=== PATIENT | female | born 1980 | race Caucasian/White ===

== ENCOUNTER 2019-03-22 23:32 | Emergency (ER) | payer OTHER, SELFPAY ==
[2019-03-22 23:06] VITALS: BP 140/103; PULSE 134; RESP 16; TEMP 37.4; O2SAT 97
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
[2019-03-23 01:00] VITALS: BP 138/100; PULSE 123; RESP 13; TEMP 37.2; O2SAT 98
[2019-03-23 02:35] VITALS: BP 144/103; PULSE 119; RESP 15; O2SAT 98
[2019-03-23] MEDS: TRAMADOL HCL 50 MG TABLET PO (02:35)
== END 2019-03-23 02:35 | disposition home or self-care (01) ==
PROVIDERS: Emergency Provider Emergency Medicine
DX: S00.83XA Contusion of other part of head, initial encounter (principal); S20.20XA Contusion of thorax, unspecified, initial encounter; F17.210 Nicotine dependence, cigarettes, uncomplicated; Z87.440 Personal history of urinary (tract) infections; Z86.2 Personal history of diseases of the blood and blood-forming organs and certain disorders involving the immune mechanism; J45.909 Unspecified asthma, uncomplicated; Q61.5 Medullary cystic kidney; Z87.442 Personal history of urinary calculi; Z85.43 Personal history of malignant neoplasm of ovary; G47.30 Sleep apnea, unspecified; Y04.2XXA Assault by strike against or bumped into by another person, initial encounter
CPT/HCPCS: 99283; A9270

== ENCOUNTER 2019-04-23 08:04 | Emergency (ER) | payer OTHER, SELFPAY ==
[2019-04-23 08:15] VITALS: BP 120/92; PULSE 80; RESP 16; TEMP 36.9; O2SAT 99
--- NOTE | 2019-04-23 08:23 | ED.FEMALEGU ---
HPI - Female Genitourinary General Chief complaint: Urogenital-Female Stated complaint: UTI History of Present Illness HPI Narrative: This a 38-year-old female comes in complaining of urinary tract infection states that she is having burning frequency and stomach bloating and severe abdominal pain. 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 So she came to urgent care. Patient denies any fever nausea vomiting or back pain Related Data Home Medications Medication Instructions Recorded Confirmed Medical Marijuania 04/23/19 alprazolam [Xanax] 1 mg PO BID 04/23/19 04/23/19 aripiprazole [Abilify] 10 mg PO DAILY 04/23/19 04/23/19 quetiapine [Seroquel] 25 mg PO DAILY 04/23/19 04/23/19 Allergies Allergy/AdvReac Type Severity Reaction Status Date / Time Contrast Media Allergy Mild HIVES/ RED Uncoded 03/22/19 23:36 FACE Review of Systems Review of Systems: Narrative: ever, chills, or sweats. EYES: Denies visual changes, redness, or discharge. ENT: Denies rhinorrhea, congestion, sore throat, or otalgia. CARDIOVASCULAR:Denies chest pain, palpitations, or edema. RESPIRATORY: Denies cough or dyspnea. GASTROINTESTINAL: Denies abdominal pain, nausea, vomiting, or diarrhea. GENITOURINARY: Gratzer positive dysuria or hematuria. SKIN:[Denies rash or itching. MUSCULOSKELETAL:Denies back pain, joint pain, or myalgia. NEUROLOGIC: Denies headache, numbness, or weakness. PSYCHIATRIC:Denies anxiety or depression [facility] Past Medical History Medical History (Updated 04/23/19 @ 08:27 by Pavan Caal NP) Anemia Anxiety Asthma Bipolar disorder Depression Hepatitis B Kidney disease sponge kidney disease Kidney stones Ovarian cancer Polyhydramnios PTSD (post-traumatic stress disorder) Sleep apnea UTI (urinary tract infection) Surgical History Surgical History (Updated 03/23/19 @ 00:16 by Tina eReder) H/O oophorectomy lt H/O tubal ligation History of dilatation and curettage History of salpingectomy lt Hx of section Social History Social History (Updated 03/23/19 @ 00:16 by Tina Reeder) Smoking packs per day: 0.5 Smoking cigarettes per day: 10.0 Smoking status: Current every day smoker Alcohol intake: current Gender identity (if verbalized by the patient): Female Comments At time as signature, I have reviewed and agree with nursing past medical, social, surgical and family history. Please see nursing chart for further information. There is no relevant family history pertinent to the presenting complaint. Exam Narrative: Exam Narrative: GENERAL:Well-appearing, well-nourished, and in no acute distress. HEAD:Normocephalic, atraumatic. EYES: PERRLA and EOMI. ENT: Nares clear, no rhinorrhea or epistaxis. Mucous membranes moist. NECK: Supple. CHEST: Clear to auscultation. No respiratory distress. HEART: Regular rate and rhythm. No murmur heard. Normal peripheral pulses. ABDOMEN: Soft, nontender, nondistended, normal active bowel sounds. Frequency and dysuria EXTREMITIES: Normal range of motion. No edema. SKIN: Warm, dry, no rash. NEURO: No focal deficits. Alert and oriented x3. Patient states she is here every 3 to 4 weeks she has these frequency discussed with patient about seeing a urologist. Informed patient she needed to speak with her primary care provider for possible referral. Question patient about spilling sugar in her urine patient has a family history of diabetes patient is states she has excessive thirstiness she drinks 6-7 bottles of water in the middle the night. Informed patient it was vital that she gets a hold of her PCP as soon as possible and get this taken care. Course Vital Signs Vital signs: Vital Signs Temperature 98.5 F 04/23/19 08:15 Pulse Rate 80 03/
== END 2019-04-23 08:51 | disposition home or self-care (01) ==
PROVIDERS: Emergency Provider Nurse Practitioner Family
DX: N10 Acute pyelonephritis (principal); F17.210 Nicotine dependence, cigarettes, uncomplicated; F41.9 Anxiety disorder, unspecified; F31.9 Bipolar disorder, unspecified; G47.30 Sleep apnea, unspecified
CPT/HCPCS: 81003; 87077; 87086; 87088; 87186; 99213; G0463

== ENCOUNTER 2019-07-30 10:57 | Emergency (ER) | payer OTHER, SELFPAY ==
[2019-07-30 11:31] VITALS: BP 113/71; PULSE 64; RESP 16; TEMP 36.4; O2SAT 98
--- NOTE | 2019-07-30 11:53 | ED.FEMALEGU ---
HPI - Female Genitourinary General Chief complaint: Urogenital-Female Stated complaint: Possbile UTi Time Seen by Provider: 07/30/19 11:54 Source: patient and RN notes reviewed Mode of arrival: ambulatory Limitations: no limitations History of Present Illness HPI Narrative: This is a 38 years old female presented office for evaluation of possible UTI. Symptoms began a few days ago with urinary urgency, frequency, and suprapubic tenderness. Symptoms reminiscent her previous UTI. Admits to history of recurrent UTI in the past. She is sexually active with one parnter. Denies concerns for STIs. Related Data Home Medications Medication Instructions Recorded Confirmed alprazolam [Xanax] 1 mg PO TID 07/30/19 07/30/19 aripiprazole [Abilify] 10 mg PO DAILY 07/30/19 07/30/19 Allergies Allergy/AdvReac Type Severity Reaction Status Date / Time Contrast Media Allergy Mild HIVES/ RED Uncoded 07/30/19 11:39 FACE Review of Systems Review of Systems: Narrative: CONSTITUTIONAL: Denies fever or feeling ill ENT: Denies congestion CARDIOVASCULAR: Denies chest pain RESPIRATORY: Denies dyspnea GASTROINTESTINAL: Denies abdominal pain, nausea, vomiting GENITOURINARY: Denies vaginal discharge, itchy or lesions SKIN: Denies rash MUSCULOSKELETAL: Denies acute back pain NEUROLOGIC: Denies lightheaded PMFSH Past Medical History Medical History Anemia Anxiety Asthma Bipolar disorder Depression Hepatitis B Kidney disease sponge kidney disease Kidney stones Ovarian cancer Polyhydramnios PTSD (post-traumatic stress disorder) Sleep apnea UTI (urinary tract infection) Surgical History Surgical History H/O oophorectomy lt H/O tubal ligation History of dilatation and curettage History of salpingectomy lt Hx of section Social History Social History Smoking packs per day: 0.5 Smoking cigarettes per day: 10.0 Smoking status: Current every day smoker Alcohol intake: current Gender identity (if verbalized by the patient): Female Comments At time of signature, I agree with nursing past medical, surgical, social and family history. There is no relevant family history pertinent to the presenting complaint. Exam Narrative: Exam Narrative: GENERAL: This is a well-nourished, well-developed patient, in no apparent distress. CARDIOVASCULAR: Regular rate and rhythm without murmurs, gallops, or rubs. RESPIRATORY: Clear to auscultation. Breath sounds equal bilaterally. No wheezes, rales, or rhonchi. GASTROINTESTINAL: Abdomen soft with suprapubic tenderness with palpation, non-tender, nondistended. Bowel sounds are active. No hepato-splenomegaly, or palpable masses. No guarding. SKIN: warm, intact with no suspicious lesions or rash, good texture and turgor. NEURO: awake, alert, and oriented to person, place and time. There were no obvious focal neurologic abnormalities. Steady gait BACK: No flank tenderness. Jagjit Coma Scale Eye Opening: Spontaneous 4 Jagjit Coma Scale Motor: Obeys Commands 6 [place] Coma Scale Verbal: Oriented 5 Course Vital Signs Vital signs: Vital Signs Temperature 97.5 F L 07/30/19 11:31 Pulse Rate 64 07/30/19 11:31 Respiratory Rate 16 07/30/19 11:31 Blood Pressure 113/71 07/30/19 11:31 Pulse Oximetry 98 07/30/19 11:31 Temperature 97.5 F L 07/30/19 11:31 Pulse Rate 64 07/30/19 11:31 Respiratory Rate 16 07/30/19 11:31 Blood Pressure 113/71 07/30/19 11:31 Pulse Oximetry 98 07/30/19 11:31 MDM - Female Genitourinary MDM Narrative Medical decision making narrative: Discharge instructions reviewed with patient, as well as provided in writing per nursing staff. The instructions also include specific and strict return/GO TO THE ER as well as f/u information. All questions have
== END 2019-07-30 12:15 | disposition home or self-care (01) ==
PROVIDERS: Emergency Provider Nurse Practitioner
DX: N39.0 Urinary tract infection, site not specified (principal); B96.1 Klebsiella pneumoniae [K. pneumoniae] as the cause of diseases classified elsewhere; F41.9 Anxiety disorder, unspecified; F31.9 Bipolar disorder, unspecified; Z86.19 Personal history of other infectious and parasitic diseases; Z85.43 Personal history of malignant neoplasm of ovary; F43.10 Post-traumatic stress disorder, unspecified; Z87.442 Personal history of urinary calculi; G47.30 Sleep apnea, unspecified; Z87.440 Personal history of urinary (tract) infections; F17.210 Nicotine dependence, cigarettes, uncomplicated; Q61.5 Medullary cystic kidney; J45.909 Unspecified asthma, uncomplicated
CPT/HCPCS: 81003; 81025; 87077; 87086; 87088; 87186; 99213; G0463

== ENCOUNTER 2019-09-05 19:28 | Emergency (ER) | payer OTHER, SELFPAY ==
--- NOTE | ~2019-09-05 | CT_ITS ---
EXAMINATION: CT abdomen pelvis wo con DATE: 09/05/2019 20:40 INDICATION: Abdominal pain. TECHNIQUE: Computed tomography (CT) of the abdomen and pelvis was performed without intravenous contr ast. Automated exposure control and iterative reconstruction technique were employed. The dose-length product was 794.73 mGy-cm. COMPARISON: CT abdomen and pelvis 02/17/2017 FINDINGS: The visualized portions of the lung bases demonstrate mild atelectasis. No pleural effusion . The heart size is normal. No pericardial effusion. The liver is normal. There is a gallstone in the gallbladder, which is normal in size. Calcifications in the spleen are consistent with old granuloma tous disease. The pancreas and adrenal glands are normal. There is a 1 mm stone in right kidney. Ther e is a 2 mm stone in left kidney. There are no dilated loops of bowel. The appendix is normal. There are no pathologically enlarged lymph nodes. There is no free intraperitoneal fluid. There is mild tho racolumbar spondylosis. IMPRESSION: 1. Small bilateral nonobstructing kidney stones. 2. Cholelithiasis. Reviewed, dictated and finalized at location A.
[2019-09-05 19:30] VITALS: BP 117/77; PULSE 72; RESP 16; TEMP 37.2; O2SAT 100
[2019-09-05] MEDS: SODIUM CHLORIDE 0.9% IV 1,000 ML 999 ML IV CONT (20:06)
[2019-09-05] MEDS: ONDANSETRON INJ 4 MG/2 ML VIAL IV PUSH (20:06)
[2019-09-05] MEDS: FAMOTIDINE 20 MG/2 ML VIAL IV PUSH (20:06)
[2019-09-05 20:09] LABS: Basophils Percent Auto 0.4 % (0.2-1.2); Eosinophils Absolute Auto 0.1 K/mm3 (0-0.3); Eosinophils Percent Auto 0.9 % (0-4.4); Hematocrit 44.8 % (37.0-47.0); Immature Granulocyte Absolute 0.01 K/mm3 (0.00-0.031); Immature Granulocyte Percent A 0.2 % (0-0.5); Lymphocytes Absolute Auto 1.12 K/mm3 (0.9-3.2); Lymphocytes Percent Auto 21.1 % (18.3-44.2); Mean Corpuscular HGB Conc 33.5 g/dl (32-36); Mean Corpuscular Hemoglobin 30.5 pg (26-34); Mean Corpuscular Volume 91.2 fl (80-100); Mean Platelet Volume 12.2 fl (7.4-10.4); Monocytes Absolute Auto 0.4 K/mm3 (0.1-0.6); Monocytes Percent Auto 7.1 % (2.6-8.5); Neutrophils Absolute Auto 3.7 K/mm3 (1.3-6.7); Neutrophils Percent Auto 70.3 % (45.5-73.1); Platelet Count Result 148 k/mm3 (150-375); Red Blood Count 4.91 M/mm3 (4.2-5.4); Red Cell Distribution Width 13.2 % (11.5-14.5); White Blood Count 5.3 K/mm3 (4.5-10.0)
[2019-09-05 20:15] LABS: Lactic Acid Reflex 0.8 mmol/L (0.7-2.1)
[2019-09-05 20:16] LABS: Alanine Aminotransferase 28 U/L (4-35); Albumin Level 4.5 g/dL (3.5-5.1); Alkaline Phosphatase 72 U/L (38-126); Aspartate Amino Transferase 30 U/L (14-36); Bilirubin,Total 0.5 mg/dL (0.2-1.3); Blood Urea Nitrogen 11 mg/dL (7-17); Calcium 9.9 mg/dL (8.4-10.2); Carbon Dioxide 29 mmol/L (22-30); Chloride 102 mmol/L (98-107); Estimated CRCL calculation 112 ml/min; Estimated Glomerular Filt Rate > 60; Glucose 93 mg/dL (65-105); Lipase 162 U/L (23-300); Potassium 3.9 mmol/L (3.4-5.0); Sodium 138 mmol/L (137-145)
--- NOTE | 2019-09-05 20:23 | ED.ABDPAIN ---
HPI - Abdominal Pain General Chief Complaint: Abdominal Pain Stated Complaint: nausea, abominal pain Time Seen by Provider: 09/05/19 19:37 Source: patient Mode of arrival: ambulatory Limitations: no limitations History of Present Illness HPI narrative: Patient is a 39-year-old female who presents to emergency department for evaluation of lower abdominal pain that began yesterday patient notes moderate aching pain to the suprapubic region that does not radiate made worse with activity and movement tried medications that she had at home. Patient noted minimal improvement pain is remained constant denies similar occurrence in the past. Patient denies concern for STD Related Data Home Medications Medication Instructions Recorded Confirmed alprazolam [Xanax] 1 mg PO TID 07/30/19 07/30/19 aripiprazole [Abilify] 10 mg PO DAILY 07/30/19 07/30/19 Allergies Allergy/AdvReac Type Severity Reaction Status Date / Time hydrocodone [From Vicodin] Allergy Itching Verified 09/05/19 20:02 morphine Allergy Itching Verified 09/05/19 20:02 oxycodone [From Percocet] Allergy Hallucinati Verified 09/05/19 20:02 ng Contrast Media Allergy Mild HIVES/ RED Uncoded 09/05/19 20:20 FACE PMFSH Social History Social History Smoking packs per day: 0.5 Smoking cigarettes per day: 10.0 Smoking status: Current every day smoker Alcohol intake: current Gender identity (if verbalized by the patient): Female Course Course Emergency Course: Patient in the room at this time aware of case findings treatment plan and diagnosis agreeing to follow-up with gynecology as instructed patient was given fluids and pain medication in the emergency department. Patient aware of the CAT scan findings and blood work findings Vital Signs Vital signs: Vital Signs Temperature 99.0 F 09/05/19 19:30 Pulse Rate 72 09/05/19 19:30 Respiratory Rate 16 09/05/19 19:30 Blood Pressure 117/77 09/05/19 19:30 Pulse Oximetry 100 09/05/19 19:30 Temperature 99.0 F 09/05/19 19:30 Pulse Rate 72 09/05/19 19:30 Respiratory Rate 16 09/05/19 19:30 Blood Pressure 117/77 09/05/19 19:30 Pulse Oximetry 100 09/05/19 19:30 MDM - Abdominal Pain MDM Narrative Medical decision making narrative: Patient in the room aware of case findings treatment plan and diagnosis agreeing to follow-up with her news commentator as instructed given that her pain is largely in the pelvis patient felt that gynecology follow-up would be the most reasonable starting place patient also advised to follow with primary care. Patient without high risk changes in the blood work or imaging given fluids and pain management in the emergency department. Patient will be discharged home with instructions to follow with gynecology and primary care as well as prior divided with reasons to return to the ED Lab Data Result diagrams: 09/05/19 19:53 09/05/19 19:53 Labs: Lab Results 09/05/19 09/05/19 09/05/19 Range/Units 19:53 19:53 19:53 WBC Pending RBC Pending Hgb Pending Hct Pending MCV Pending MCH Pending MCHC Pending RDW Pending Plt Count Pending MPV Pending Immature Gran % (Auto) Pending Neut % (Auto) Pending Lymph % (Auto) Pending [place] % (Auto) Pending Eos % (Auto) Pending Baso % (Auto) Pending Lymph # (Auto) Pending [place] # (Auto) Pending Eos # (Auto) Pending Baso # (Auto) Pending Abs Immat Gran (auto) Pending Absolute Neuts (auto) Pending Absolute Nucleated RBC Pending Nucleated RBC % Pending Sodium 138 (137-145) mmol/L Potassium 3.9 (3.4-5.0) mmol/L Chloride 102 (98-107) mmol/L Carbon Dioxide 29 (22-30) mmol/L BUN 11 (7-17) mg/dL Creatinine 0.60 L (0.7-1.0) mg/dL Estim Creat Clear Calc 112 ml/min Estimated GFR > 60 (59 - )
[2019-09-05 20:25] LABS: Add Urine Microscopic? YES; Appearance Urine Clear (Clear); Bilirubin Urine Negative (Negative); Blood Urine 2+ (Negative); Color Urine Yellow (Yellow); Glucose Urine UA Negative (Negative); Ketones Urine Negative (Negative); Leukocyte Esterase Ur Negative LEU/UL (Negative); Mucus Urine Rare /lpf; Nitrate Urine Negative (Negative); Protein Urine Negative (Negative); RBC Urine 0-2 /hpf (0-2); Specific Grav Ur 1.016 (1.001-1.035); Squamous Epithelial Cell Urine Many /hpf (Few); WBC Urine 0-3 /hpf
[2019-09-05 20:36] VITALS: TEMP 37.2
[2019-09-05] MEDS: KETOROLAC 30 MG/ML VIAL (*BKC) IV PUSH (21:20)
[2019-09-05 21:27] VITALS: BP 110/73; PULSE 75; RESP 16; TEMP 36.3; O2SAT 97
[2019-09-05 21:50] VITALS: TEMP 37.2
== END 2019-09-05 22:01 | disposition home or self-care (01) ==
PROVIDERS: Emergency Medicine Emergency Medical Services; Emergency Provider Emergency Medicine; PCP Internal Medicine
DX: R10.2 Pelvic and perineal pain (principal); F17.210 Nicotine dependence, cigarettes, uncomplicated
CPT/HCPCS: 36415; 74176; 80053; 81001; 81025; 83605; 83690; 85025; 96361; 96374; 96375; 99284; J0131; J1885; J2405; J3360; J7030

== ENCOUNTER 2020-04-25 22:01 | Emergency (ER) | payer OTHER, SELFPAY ==
--- NOTE | ~2020-04-25 | CT_ITS ---
EXAMINATION: CT brain wo con INDICATION: Head injury COMPARISON: 02/11/2011 TECHNIQUE: Standard unenhanced head CT. The dose-length product (DLP) was 605.33 mGy-cm. The mA was a djusted according to patient size. Iterative reconstruction technique was employed. FINDINGS: There is no intracranial hemorrhage, acute infarction, or abnormal mass lesion. The ventric les are normal. There is no abnormal mass effect or midline shift. The bunn-white matter differentiat ion is normal. The basal cisterns are patent. The orbits are normal. The paranasal sinuses, mastoids and calvarium are normal. IMPRESSION: 1. No acute intracranial abnormality. Reviewed, dictated and finalized at location A. [employer] HELPER
[2020-04-25 22:00] VITALS: BP 109/79; PULSE 102; RESP 17; TEMP 36.2; O2SAT 95
[2020-04-25] MEDS: TETANUS,DIPHTHERIA,AC PERTUSSIS ADULT (0.5 ML) BOOSTRIX IM (22:19)
[2020-04-25] MEDS: IBUPROFEN 600 MG TABLET PO (22:20)
--- NOTE | 2020-04-25 22:22 | PC.NURSE ---
Patient taken to CT.
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
[2020-04-25 23:25] VITALS: BP 105/79; PULSE 95; RESP 18; O2SAT 100
== END 2020-04-25 23:27 | disposition home or self-care (01) ==
PROVIDERS: Emergency Provider Emergency Medicine; PCP Internal Medicine
DX: S61.301A Unspecified open wound of left index finger with damage to nail, initial encounter (principal); S61.303A Unspecified open wound of left middle finger with damage to nail, initial encounter; S61.305A Unspecified open wound of left ring finger with damage to nail, initial encounter; J45.909 Unspecified asthma, uncomplicated; F41.9 Anxiety disorder, unspecified; F31.9 Bipolar disorder, unspecified; Q61.5 Medullary cystic kidney; Z87.442 Personal history of urinary calculi; Z85.43 Personal history of malignant neoplasm of ovary; F43.10 Post-traumatic stress disorder, unspecified; G47.30 Sleep apnea, unspecified; F17.210 Nicotine dependence, cigarettes, uncomplicated; Z87.440 Personal history of urinary (tract) infections; Y04.2XXA Assault by strike against or bumped into by another person, initial encounter; Z23 Encounter for immunization
CPT/HCPCS: 70450; 90471; 90715; 99284; A9270

== ENCOUNTER 2021-09-13 12:07 | Outpatient (CLI) | payer OTHER, SELFPAY ==
[2021-09-13 12:35] LABS: Hematocrit 42.3 % (37.0-47.0); Hemoglobin 14.3 g/dL (12.0-15.0); Mean Corpuscular HGB Conc 33.8 g/dl (32-36); Mean Corpuscular Hemoglobin 31.6 pg (26-34); Mean Corpuscular Volume 93.6 fl (80-100); Mean Platelet Volume 11.6 fl (7.4-10.4); Platelet Count Result 145 k/mm3 (150-375); Red Blood Count 4.52 M/mm3 (4.2-5.4); Red Cell Distribution Width 13.2 % (11.5-14.5); White Blood Count 4.8 K/mm3 (4.5-10.0)
[2021-09-13 12:51] LABS: Alanine Aminotransferase 42 U/L (6-35); Albumin Level 4.4 g/dL (3.5-5.1); Alkaline Phosphatase 57 U/L (38-126); Anion Gap 8 mmol/L (8-16); Aspartate Amino Transferase 34 U/L (14-36); Bilirubin,Total 0.7 mg/dL (0.2-1.3); Blood Urea Nitrogen 12 mg/dL (7-17); Calcium 8.9 mg/dL (8.4-10.2); Carbon Dioxide 29 mmol/L (22-30); Chloride 103 mmol/L (98-107); Estimated Glomerular Filt Rate > 60; Glucose 84 mg/dL (65-110); Potassium 3.7 mmol/L (3.4-5.0); Sodium 140 mmol/L (137-145)
== END 2021-09-13 12:08 | disposition home or self-care (01) ==
PROVIDERS: PCP Internal Medicine; Visit Provider Nurse Practitioner
DX: K52.9 Noninfective gastroenteritis and colitis, unspecified (principal); R10.9 Unspecified abdominal pain; K92.1 Melena
CPT/HCPCS: 36415; 80053; 83516; 85027; 86255

== ENCOUNTER 2021-09-16 02:00 | Day surgery (SDC) | payer OTHER, SELFPAY ==
[2021-08-31 13:25] VITALS: BMI 33.2
--- NOTE | 2021-09-15 09:47 | SUR.PREOP ---
patient called to verify her prep for the procedure. pt said she is taking Sutab.
--- NOTE | 2021-09-16 07:48 | WPDANESEPPF ---
Anes - Initial Pre Proc Eval Procedure: Operation Date: 09/16/21 10:30 Proposed Procedures p Esophagogastroduodenoscopy & Colonoscopy - Valentin Rao MD Date/Time: 09/16/21 07:48 Surgeon: Valentin Rao MD Pre Op Diagnosis: IBS/D, melena, abdom.pain Patient Data Age: 41 Gender: F Height: 1.6 m Weight: 85 kg Allergies Allergy/AdvReac Type Severity Reaction Status Date / Time hydrocodone [From Vicodin] Allergy Itching Verified 09/16/21 09:07 morphine Allergy Itching Verified 09/16/21 09:07 oxycodone [From Percocet] Allergy Hallucinati Verified 09/16/21 09:07 ng Contrast Media Allergy Mild HIVES/ RED Uncoded 07/19/21 08:43 FACE Home Medications Medication Instructions Recorded Confirmed Type alprazolam 1 mg tablet (Xanax) 1 mg PO TID 07/30/19 09/16/21 History phenazopyridine 100 mg tablet 100 mg PO TID PRN pain 6 doses #6 07/30/19 09/16/21 Rx (Pyridium) tabs famotidine 20 mg tablet (Pepcid) 20 mg PO BID #10 tabs 09/05/19 09/16/21 Rx ketorolac 10 mg tablet 10 mg PO Q8H PRN pain #10 tabs 09/05/19 09/16/21 Rx orphenadrine citrate 100 mg 100 mg PO Q12H #10 tabs 09/05/19 09/16/21 Rx tablet,extended release cephalexin 250 mg capsule 250 cap PO DAILY 08/31/21 09/16/21 History Patient hx anesthesia problems: none Family hx anesthesia problems: none Results Review: All pre-operative results and documents have been reviewed as part of the pre-operative evaluation. [facility] Past Medical History Medical History (Updated 07/19/21 @ 09:31 by Ingrid Denise APRN) Abdominal pain Anemia Anxiety Asthma Bipolar disorder Chronic diarrhea Depression Hematochezia Hepatitis B Kidney disease sponge kidney disease Kidney stones Melena Obesity Ovarian cancer Polyhydramnios PTSD (post-traumatic stress disorder) Sleep apnea Tobacco use UTI (urinary tract infection) Surgical History Surgical History H/O oophorectomy lt H/O tubal ligation History of dilatation and curettage History of salpingectomy lt Hx of section Social History Social History Smoking packs per day: 0.5 Smoking cigarettes per day: 10.0 Smoking status: Current every day smoker Tobacco type: cigarettes Alcohol intake: current Substance use type: does not use Living arrangements: with family Gender identity (if verbalized by the patient): Female Spiritual care concerns: No Anes - Eval Final PreProcedure Day of Procedure 09/16/21 07:48 Patient weight: obese Heart: regular rate and rhythm Lungs: clear to auscultation and normal air movement Airway: Mallampati scale class II Neurological: alert and oriented Last oral intake: >/= 8 hours ASA classification: III Emergent: no Anesthetic plan: proceed Anesthesia type and monitoring: general GIVS Results Review: All pre-operative results and documents have been reviewed as part of the pre-operative evaluation. Informed Consent: The patient's anesthetic plan and its attendant risks and benefits were discussed with the patient/family/POA. Questions were solicited and answers provided to the satisfaction of the patient/family/POA.
[2021-09-16 09:08] VITALS: BP 107/70; PULSE 57; RESP 18; TEMP 36.1; O2SAT 100; BMI 32.8
[2021-09-16] MEDS: LACTATED RINGERS 1,000 ML 150 ML IV CONT (09:27)
--- NOTE | 2021-09-16 09:48 | PM.HPGS ---
History of Present Illness History of Present Illness Consent: Risks, benefits, and alternatives have been discussed and questions answered. Patient agrees to proceed with procedure. Chief complaint: IBS/D, melena, abdom.pain Narrative: Reyna Paige is a 41 year old female with abdominal pain and loose stools, last colonoscopy 2018, never had egd Review of Systems Constitutional: Constitutional: Denies headache(s) and Denies weakness Eyes: Eyes: Denies blurry vision ENT: Reports Normal hearing present, Denies headache(s) and Denies neck pain Cardiovascular: Cardiovascular: Denies chest pain and Denies dyspnea Respiratory: Respiratory: Denies dyspnea Gastrointestinal: Gastrointestinal: Reports no additional gastrointestinal complaints Genitourinary: Genitourinary: Denies dysuria Musculoskeletal: Musculoskeletal: Denies neck pain Integumentary/Breasts: Skin/Breast: Denies dry skin Neurologic: Reports Normal hearing present, Denies headache(s) and Denies weakness Psychiatric: Psychiatric: Denies anxiety Endocrine: Endocrine: Denies change in body appearance Hematologic/Lymphatic: Hematologic/Lymphatic: Denies easy bleeding Allergic/Immunologic: Allergic/Immunologic: Denies urticaria PMFSH Past Medical History Medical History (Updated 07/19/21 @ 09:31 by Ingrid Denise APRN) Abdominal pain Anemia Anxiety Asthma Bipolar disorder Chronic diarrhea Depression Hematochezia Hepatitis B Kidney disease sponge kidney disease Kidney stones Melena Obesity Ovarian cancer Polyhydramnios PTSD (post-traumatic stress disorder) Sleep apnea Tobacco use UTI (urinary tract infection) Surgical History Surgical History H/O oophorectomy lt H/O tubal ligation History of dilatation and curettage History of salpingectomy lt Hx of section Social History Social History Smoking packs per day: 0.5 Smoking cigarettes per day: 10.0 Smoking status: Current every day smoker Tobacco type: cigarettes Alcohol intake: current Substance use type: does not use Living arrangements: with family Gender identity (if verbalized by the patient): Female Spiritual care concerns: No Meds Home Medications and Allergies Home Medications Medication Instructions Recorded Confirmed Type alprazolam 1 mg tablet (Xanax) 1 mg PO TID 07/30/19 09/16/21 History phenazopyridine 100 mg tablet 100 mg PO TID PRN pain 6 doses #6 07/30/19 09/16/21 Rx (Pyridium) tabs famotidine 20 mg tablet (Pepcid) 20 mg PO BID #10 tabs 09/05/19 09/16/21 Rx ketorolac 10 mg tablet 10 mg PO Q8H PRN pain #10 tabs 09/05/19 09/16/21 Rx orphenadrine citrate 100 mg 100 mg PO Q12H #10 tabs 09/05/19 09/16/21 Rx tablet,extended release cephalexin 250 mg capsule 250 cap PO DAILY 08/31/21 09/16/21 History Allergies Allergy/AdvReac Type Severity Reaction Status Date / Time hydrocodone [From Vicodin] Allergy Itching Verified 09/16/21 09:07 morphine Allergy Itching Verified 09/16/21 09:07 oxycodone [From Percocet] Allergy Hallucinati Verified 09/16/21 09:07 ng Contrast Media Allergy Mild HIVES/ RED Uncoded 07/19/21 08:43 FACE Vital Signs Vital Signs - 24 hr 09/16/21 09:08 Temperature 97.0 F L Pulse Rate 57 L Respiratory Rate 18 Blood Pressure 107/70 Pulse Oximetry 100 Oxygen Delivery Room Air Exam Const: General: comfortable and no acute distress HENMT: General nose exam: Normal nares present Eyes: General: appearance normal, both eyes and all related structures Neck: Neck: no JVD Resp: Auscultation: clear to auscultation bilaterally Cardio: Rate: regular rate Rhythm: regular rhythm GI: Inspection: non-distended GI Palp: Yes Soft to palpation Skin: General skin exam: normal color Neuro: General: gait normal Speech: normal speech Extrem: General: norm
--- NOTE | 2021-09-16 10:04 | SUR.OPER ---
EGD END AT 1003. COLONOSCOPY START AT 1007.
[2021-09-16 10:24] VITALS: BP 113/69; PULSE 72; RESP 16; O2SAT 100
[2021-09-16 10:34] VITALS: BP 122/65; PULSE 74; RESP 18; O2SAT 100
[2021-09-16 10:44] VITALS: BP 128/72; PULSE 78; RESP 18; O2SAT 100
== END 2021-09-16 10:57 | disposition home or self-care (01) ==
PROVIDERS: PCP Internal Medicine; Visit Provider Internal Medicine Gastroenterology
PROC: 0DJ08ZZ Inspection of Upper Intestinal Tract, Via Natural or Artificial Opening Endoscopic (ICD-10-PCS; CPT 43235; principal; 2021-09-16 10:30)
DX: K58.9 Irritable bowel syndrome, unspecified (principal); K29.61 Other gastritis with bleeding; K64.8 Other hemorrhoids; R10.84 Generalized abdominal pain; F41.9 Anxiety disorder, unspecified; D64.9 Anemia, unspecified; J45.909 Unspecified asthma, uncomplicated; F31.9 Bipolar disorder, unspecified; B19.10 Unspecified viral hepatitis B without hepatic coma; F43.10 Post-traumatic stress disorder, unspecified; Z85.43 Personal history of malignant neoplasm of ovary; G47.30 Sleep apnea, unspecified; F17.210 Nicotine dependence, cigarettes, uncomplicated; R10.9 Unspecified abdominal pain; E66.9 Obesity, unspecified; Z68.32 Body mass index [BMI] 32.0-32.9, adult
CPT/HCPCS: 45380; 43239; 88305; J2704; J7120

== ENCOUNTER 2021-10-05 08:10 | Outpatient (CLI) | payer OTHER, SELFPAY ==
--- NOTE | ~2021-10-05 | US_ITS ---
US abdomen limited INDICATION: Viral hepatitis. Abdomen pain. PROCEDURE: Realtime right upper abdominal ultrasound. COMPARISON: No prior studies for comparison. FINDINGS: The pancreas is normal without focal mass or pancreatic ductal dilation. Liver echotexture is normal without focal mass or intrahepatic biliary dilatation. There is normal directional flow i n the portal vein. There are gallstones. No gallbladder wall thickening or pericholecystic fluid. Common bile duct alka ures 4 mm. No sonographic Cedeño's sign. IMPRESSION: 1: Cholelithiasis. Reviewed, dictated and finalized at location B. IMPRESSION: 1: Cholelithiasis.
== END 2021-10-05 08:11 | disposition home or self-care (01) ==
LOC: ANHIMG 08:13
PROVIDERS: PCP Internal Medicine; Visit Provider Nurse Practitioner
DX: R79.89 Other specified abnormal findings of blood chemistry (principal); B19.10 Unspecified viral hepatitis B without hepatic coma; K80.20 Calculus of gallbladder without cholecystitis without obstruction
CPT/HCPCS: 76705

== ENCOUNTER 2021-10-17 14:40 | Outpatient (CLI) | payer OTHER, SELFPAY ==
[2021-10-17 15:29] LABS: Prothrombin Time 13.1 Seconds (11.1-14.7)
[2021-10-17 15:30] LABS: Partial Thromboplastin Time 26.3 SECONDS (22.3-36.8)
[2021-10-17 15:33] LABS: Anion Gap 10 mmol/L (8-16); Blood Urea Nitrogen 14 mg/dL (7-17); Calcium 9.1 mg/dL (8.4-10.2); Carbon Dioxide 23 mmol/L (22-30); Chloride 105 mmol/L (98-107); Estimated Glomerular Filt Rate > 60; Glucose 87 mg/dL (65-110); Potassium 4.1 mmol/L (3.4-5.0); Sodium 138 mmol/L (137-145)
[2021-10-17 15:34] LABS: Alanine Aminotransferase 46 U/L (6-35); Albumin Level 4.1 g/dL (3.5-5.1); Alkaline Phosphatase 61 U/L (38-126); Amylase 70 U/L (30-110); Aspartate Amino Transferase 42 U/L (14-36); Bilirubin,Total 0.7 mg/dL (0.2-1.3); Lipase 140 U/L (23-300)
== END 2021-10-17 14:41 | disposition home or self-care (01) ==
PROVIDERS: Anesthesiology; PCP Internal Medicine; Visit Provider Surgery
DX: K80.10 Calculus of gallbladder with chronic cholecystitis without obstruction (principal); Q61.5 Medullary cystic kidney; Z01.818 Encounter for other preprocedural examination
CPT/HCPCS: 36415; 80048; 80076; 82150; 83690; 85610; 85730; 86850; 86900; 86901

== ENCOUNTER 2021-10-19 00:53 | Day surgery (SDC) | payer OTHER, SELFPAY ==
[2021-10-14 12:45] VITALS: BMI 32.5
--- NOTE | 2021-10-14 12:59 | PC.NURSE ---
Report to the Outpatient Waiting Room, entrance under the green pavilion located off [address], at time 10:00 on date 10/19/21. OR Time: 12:00. - You and your visitor will be asked to self-screen and do not enter if you have any COVID symptoms. - Only one visitor and NO children visitors are allowed at this time. - The patient visitor is requested to leave or wait in car when not with patient due to restrictions. - A mask is required within the hospital. Patients may have clear liquids (water, carbonated beverages, clear teas, apple juice) until 3 hours prior to surgery (9:00) with a maximum of 20 ounces. - No food from midnight until time of surgery Take the following medications with a SIP of water the morning of surgery: XANAX, CEPHALEXIN Medications to discontinue per physician: N/A Date to take last dose: N/A Please no make-up, nail lithuanian, hairspray, perfume, deodorant, or body powder the day of surgery. No jewelry (including any body piercings) or valuables the day of surgery, leave them at home. Please take a shower or bath the night before, or the morning of, surgery with an antibacterial soap (HIBICLENS). Wear comfortable, loose fitting clothing. - Jewelry must be removed prior to entering the operating room. Rings and piercings that are not removed may be cut off. - The hospital will not accept responsibility for valuables. - Please leave all valuables, including medications, at home the day of surgery. If you are going home after surgery, a licensed flag car driver must drive you home. - NO public transportation without another adult. - We recommend that an adult stay with you for 24 hours following discharge. - We also recommend that you do not drive, make important decision, drink alcoholic beverages, or take any drugs that were not prescribed by your health care provider for at least 24 hours after your discharge time. Follow any additional instructions given to you from your surgeon. If you or anyone in your household have experienced Covid symptoms in the past week, please notify your surgeon or the nurse liaison at the phone number below for possible testing. Telephone instructions given to PT Shira TREVIZO and asked if any additional questions and then verbalized understanding. Patient advised to call surgeon office or pre surgery nurse liaison [phone] if any additional questions.
--- NOTE | 2021-10-18 13:26 | WPDANESEPPF ---
Anes - Initial Pre Proc Eval Procedure: Operation Date: 10/19/21 12:00 Proposed Procedures p Laparoscopic Cholecystectomy - Surekha Hennessy MD Date/Time: 10/18/21 13:26 Surgeon: Surekha Hennessy MD Pre Op Diagnosis: Chronic Cholecystitis with Stones Patient Data Age: 41 Gender: F Height: 1.6 m Weight: 83.46 kg Allergies Allergy/AdvReac Type Severity Reaction Status Date / Time oxycodone [From Percocet] Allergy Intermediate Hallucinati Verified 10/19/21 10:43 ng Iodinated Contrast Media Allergy Unknown Rash Verified 10/14/21 12:43 morphine AdvReac Mild Itching Verified 10/19/21 10:43 Home Medications Medication Instructions Recorded Confirmed Type alprazolam 1 mg tablet (Xanax) 1 mg PO TID 07/30/19 10/19/21 History phenazopyridine 100 mg tablet 100 mg PO TID PRN pain 6 doses #6 07/30/19 10/19/21 Rx (Pyridium) tabs cephalexin 250 mg capsule 250 cap PO DAILY 08/31/21 10/19/21 History cholestyramine (with sugar) 4 gram 4 g PO BID #378 grams 10/03/21 10/14/21 Rx oral powder (Questran) eluxadoline 75 mg tablet (Viberzi) 75 mg PO BID #60 tabs 10/03/21 10/14/21 Rx hyoscyamine sulfate 0.125 mg 0.125 mg PO QID #120 tabs 10/03/21 10/14/21 Rx tablet (Levsin) Patient hx anesthesia problems: none Family hx anesthesia problems: none Results Review: All pre-operative results and documents have been reviewed as part of the pre-operative evaluation. [facility] Past Medical History Medical History Abdominal pain Anemia Anxiety Asthma Bipolar disorder Chronic diarrhea Depression Hematochezia Hepatitis B History of blood transfusion Kidney disease sponge kidney disease Kidney stones Melena Obesity Ovarian cancer Polyhydramnios PTSD (post-traumatic stress disorder) Sleep apnea Tobacco use UTI (urinary tract infection) Surgical History Surgical History H/O oophorectomy lt H/O tubal ligation History of dilatation and curettage History of salpingectomy lt Hx of section Social History Social History (System 10/12/21 @ 13:01 by Gladys Salinas) Smoking packs per day: 0.5 Smoking cigarettes per day: 10.0 Years smoked: 25 Smoking pack-years: 12.50 Smoking status: Current every day smoker Tobacco type: cigarettes Smoking end date: 02/19/11 Alcohol intake: current Drinks per week: 8 Alcohol use details: rarely-wine Substance use: current Substance use type: marijuana Other substance usage details: medical marijuana Living arrangements: with family 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 Informed Consent: The patient's anesthetic plan and its attendant risks and benefits were discussed with the patient/family/POA. Questions were solicited and answers provided to the satisfaction of the patient/family/POA.
[2021-10-19] VITALS (12 sets, daily range): BP systolic 96–125; BP diastolic 61–76; PULSE 53–71; RESP 11–20; TEMP 36.1–36.2; O2SAT 96–98
--- NOTE | 2021-10-19 10:14 | WPDHPUPDATE1 ---
History and Physical Update Update Date/Time: 10/19/21 10:14 History and Physical has been reviewed, including an updated exam of the patient. There are NO changes in the patient's condition. Risks, benefits, and alternatives have been discussed and questions answered. Patient agrees to proceed with procedure. pt also c 2x2 cm cystic mass in mid chest wall that has come up over last few mos. Pt would like this excised. Ok to proceed c exc bx during cholecystectomy
[2021-10-19] MEDS: ACETAMINOPHEN 500 MG TABLET 1000 MG PO (10:45)
[2021-10-19] MEDS: LACTATED RINGERS 1,000 ML 30 ML IV CONT ×2 (11:00→14:37)
[2021-10-19] MEDS: KETOROLAC 15 MG/ML VIAL (*BKC) IV PUSH (11:03)
--- NOTE | 2021-10-19 11:58 | SUR.PREOP ---
1145-PT AND AWARE PREVIOUS SURGEON DELAYS ROOM 20 MINUTES.
[2021-10-19] MEDS: ceFAZolin 2 GM/D5W 50 ML 2 GM/50 ML BAG IVPB (12:30)
--- NOTE | 2021-10-19 13:41 | W.PM.PROC2 ---
Procedure Note - Detailed Date of Procedure 10/19/21 Pre-op Diagnosis Chronic Cholecystitis with cholelithiasis, chest wall cystic mass Post-op Diagnosis Same Procedure Performed Laparoscopic cholecystectomy, excisional biopsy chest wall cystic mass measuring approximately 2x2 cm Surgeon Surekha Hennessy MD Anesthesia General Indications 41-year-old female presented to the office complaining of postprandial right upper quadrant abdominal pain associated with nausea and vomiting. Workup including imaging significant for cholecystitis, cholelithiasis. Pt also developed a 2x2 cm cystic mass on her mid chest wall over last few wks. Pt reports area is getting larger and is quite tender. Findings Cholecystitis with cholelithiasis, 2x2 cm cystic mass chest wall Description of Procedure The patient was taken to the operating room placed in the supine position. After adequate induction of general anesthesia, the patient was prepped and draped in normal sterile fashion. A time-out was then performed to verify the patient's identity as well as the procedure being performed. I then made a 5 mm incision in the infraumbilical region. Through this, a Veress needle was placed into the peritoneal cavity and CO2 gas was then insufflated. After adequate pneumoperitoneum was achieved, the Veress needle was removed and a 5 mm optiview trocar was placed through this incision under direct visualization. I then placed the laparoscope through this trocar site and under direct visualization placed a further 12 mm subxiphoid port as well as 2 additional 5 mm ports in the right upper abdomen. The gallbladder was then identified and was noted to be moderately inflamed, distended, and full of gallstones. I was able to place a grasper at the dome of the gallbladder and this was retracted anterior and cephalad up over the liver. A 2nd retractor was then placed at the infundibulum and retracted laterally, this allowed visualization of the triangle of Calot. I then was able to visualize the cystic duct in its entirety from its proximal insertion into the gallbladder, to its distal junction with the common hepatic/common bile duct junction. At this point, I carefully skeletonized the proximal cystic duct with the [place] dissector. I then clipped and transected the proximal cystic duct. Next I visualized the cystic artery. Again the artery was skeletonized, clipped, and transected. I then used the Bovie cautery to take down the peritoneal attachments of the gallbladder off the liver bed. This was somewhat difficult given the amount of inflammation in the posterior space. Once the gallbladder specimen was completely detached, an endo-pouch was placed through the 12 mm port site. I then placed the gallbladder specimen into the Endo pouch and removed the endo-pouch from the 12 mm port site. The specimen will now be sent to pathology for further review. I then copiously irrigated the right upper quadrant. Hemostasis was noted in the liver bed, the clips were noted to be in good position on both the cystic duct stump and the cystic artery stump. No other pathology was noted in the right upper quadrant. I then moved the laparoscope to the subxiphoid port. No iatrogenic injury or other pathology was noted in the lower abdomen. I then closed the 12 mm trocar site under direct visualization using the Geremias cone and 0 Vicryl suture. At this point, the abdomen was desufflated and all ports removed. All port sites were then closed with 4.O Monocryl subcuticular sutures. Dermabond was placed on each incision. I then made an elliptical incision over the chest wall mass. I then encountered the cystic mass in the subcutaneous tissue, measuring approximately 2x2 cm. The cyst was noted to have a small rupture, leaking sebaceous material. I was able to excise the cyst in full, including the overlying ellipse of skin. The specimen will now be sent to pathology for further review. I then copi
[2021-10-19] MEDS: fentaNYL CITRATE INJ (*CRX) 100 MCG/2 ML VIAL 25 MCG IV PUSH ×6 (13:55→14:37)
[2021-10-19] MEDS: ONDANSETRON INJ 4 MG/2 ML VIAL IV PUSH (14:14)
[2021-10-19] MEDS: HYDROmorphone HCL INJ (*CRX) 1 MG/ML SYR 0.5 MG IV PUSH ×2 (14:55→15:02)
[2021-10-19] MEDS: HYDROcodone/acetaminophen (*CRX) 5-325 MG TABLET 1 TAB PO (15:40)
== END 2021-10-19 16:35 | disposition home or self-care (01) ==
PROVIDERS: PCP Internal Medicine; Visit Provider Surgery
PROC: 0FT44ZZ Resection of Gallbladder, Percutaneous Endoscopic Approach (ICD-10-PCS; CPT 47562; principal; 2021-10-19 12:00)
DX: K80.10 Calculus of gallbladder with chronic cholecystitis without obstruction (principal); R11.10 Vomiting, unspecified; R10.11 Right upper quadrant pain; L72.0 Epidermal cyst; D64.9 Anemia, unspecified; F41.9 Anxiety disorder, unspecified; J45.909 Unspecified asthma, uncomplicated; F31.9 Bipolar disorder, unspecified; B19.10 Unspecified viral hepatitis B without hepatic coma; F17.210 Nicotine dependence, cigarettes, uncomplicated; F12.90 Cannabis use, unspecified, uncomplicated; E66.9 Obesity, unspecified; Z68.32 Body mass index [BMI] 32.0-32.9, adult
CPT/HCPCS: 47562; 11404; 12032; 88304; A9270; J0690; J1100; J1170; J1885; J2250; J2405; J2704; J2710; J3010; J7030; J7120

== ENCOUNTER 2022-02-09 10:49 | Emergency (ER) | payer OTHER, SELFPAY ==
[2022-02-09 11:02] VITALS: BP 112/81; PULSE 82; RESP 18; TEMP 36.2; O2SAT 100
--- NOTE | 2022-02-09 11:02 | ED.URI ---
HPI - URI/Sore Throat General Chief Complaint: Upper Respiratory Infection Stated Complaint: productive cough; sore throat; Time Seen by Provider: 02/09/22 11:03 Source: patient, RN notes reviewed and old records reviewed Mode of arrival: ambulatory Limitations: no limitations History of Present Illness HPI Narrative: 41-year-old presents to the [facility] with complaints productive cough since 15 of January. Developed a sore throat 2 days ago. Denies fevers. Related Data Home Medications Medication Instructions Recorded Confirmed alprazolam 1 mg tablet (Xanax) 1 mg PO TID 07/30/19 02/09/22 omeprazole 20 mg capsule,delayed 20 mg DAILY 02/09/22 02/09/22 release Allergies Allergy/AdvReac Type Severity Reaction Status Date / Time oxycodone [From Percocet] Allergy Intermediate Hallucinati Verified 02/09/22 11:11 ng Iodinated Contrast Media Allergy Unknown Rash Verified 02/09/22 11:11 morphine AdvReac Mild Itching Verified 02/09/22 11:11 Review of Systems Review of Systems: All systems reviewed & are unremarkable except as noted in HPI and below Constitutional: Constitutional: Reports no additional constitutional complaints Eyes: Eyes: Reports no additional eye complaints ENT: Reports as per HPI and Reports sore throat Cardiovascular: Cardiovascular: Reports no additional cardiovascular complaints, Denies chest pain and Denies dyspnea Respiratory: Respiratory: Reports as per HPI, Denies chest congestion, Reports cough and Denies dyspnea Gastrointestinal: Gastrointestinal: Reports no additional gastrointestinal complaints, Denies abdominal pain, Denies nausea and Denies vomiting Musculoskeletal: Musculoskeletal: Reports no additional musculoskeletal complaints Integumentary/Breasts: Skin/Breast: Reports system reviewed and no additional complaints, except as docu Neurologic: Reports system reviewed and no additional complaints, except as documented Psychiatric: Psychiatric: Reports no additional psychiatric complaints Allergic/Immunologic: Allergic/Immunologic: Reports no additional allergic/immunologic complaints [facility] Past Medical History Medical History Abdominal pain Anemia Anxiety Asthma Bipolar disorder Chronic diarrhea Depression Hematochezia Hepatitis B History of blood transfusion Kidney disease sponge kidney disease Kidney stones Melena Obesity Ovarian cancer Polyhydramnios PTSD (post-traumatic stress disorder) Sleep apnea Tobacco use UTI (urinary tract infection) Surgical History Surgical History H/O oophorectomy lt H/O tubal ligation History of dilatation and curettage History of salpingectomy lt Hx laparoscopic cholecystectomy 10/19/21 Hx of section Social History Social History Smoking packs per day: 0.5 Smoking cigarettes per day: 10.0 Years smoked: 25 Smoking pack-years: 12.50 Smoking status: Current every day smoker Tobacco type: cigarettes Smoking end date: 02/19/11 Alcohol intake: current Drinks per week: 8 Alcohol use details: rarely-wine Substance use: current Substance use type: marijuana Other substance usage details: medical marijuana 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 There is no relevant family history pertinent to the patient complaint. Exam Const: General: cooperative, healthy appearing, comfortable, no acute distress, well developed, alert and well nourished Nutritional Appearance: well nourished Orientation/consciousness: patient oriented x3 Limitations: no limitations HENMT: Head: normal to inspec
== END 2022-02-09 11:20 | disposition home or self-care (01) ==
PROVIDERS: Emergency Provider Nurse Practitioner; PCP Internal Medicine
DX: J40 Bronchitis, not specified as acute or chronic (principal); F17.210 Nicotine dependence, cigarettes, uncomplicated
CPT/HCPCS: 99213; G0463

== ENCOUNTER 2022-08-18 22:34 | Emergency (ER) | payer OTHER, SELFPAY ==
[2022-08-18] VITALS (8 sets, daily range): BP systolic 102–106; BP diastolic 57–66; PULSE 74–95; RESP 13–20; TEMP 36.6; O2SAT 98–100
--- NOTE | ~2022-08-18 | CT_ITS ---
EXAMINATION: CT abdomen pelvis wo con DATE: 08/18/2022 23:07 INDICATION: Right flank pain TECHNIQUE: Computed tomography (CT) of the abdomen and pelvis was performed without intravenous contr ast. The dose-length product (DLP) was 867.75 mGy-cm. Automated exposure control and iterative recons truction technique were employed. COMPARISON: 09/05/2019 FINDINGS: The lung bases are clear. The heart size is normal. Bilateral breast implants are noted. Pu nctate calcifications in an otherwise normal spleen likely represent healed granulomatous disease. Ch anges of cholecystectomy are noted. The liver, pancreas, and adrenal glands are normal. The left kidn ey is unremarkable. A right internal ureteral stent is in expected position. A trace amount of gas in the urinary bladder and right renal collecting systems and minimal right periureteral fat stranding are consistent with history of recent stent placement. No pathologically enlarged abdominal or pelvic lymph nodes are identified. No free intraperitoneal gas or evidence of bowel obstruction. There is a tiny appendicolith in the otherwise normal appendix. There is mild lumbar spondylosis. There is a sm all epigastric hernia containing fat to the right of midline. IMPRESSION: 1. Right internal ureteral stent in expected position with additional findings as detailed above like ly related to recent stent placement. Reviewed, dictated and finalized at location A. IMPRESSION: 1. Right internal ureteral stent in expected position with additional findings as detailed above likely related to recent stent placement.
[2022-08-18] MEDS: fentaNYL CITRATE INJ (*CRX) 100 MCG/2 ML VIAL 50 MCG IV PUSH (22:51)
[2022-08-18] MEDS: SODIUM CHLORIDE 0.9% IV 1,000 ML 999 ML IV CONT ×2 (22:52→23:32)
[2022-08-18] MEDS: ONDANSETRON INJ 4 MG/2 ML VIAL IV PUSH (22:52)
[2022-08-18 22:59] LABS: Basophils Percent Auto 0.1 % (0.2-1.2); Eosinophils Percent Auto 0.3 % (0-4.4); Hematocrit 41.4 % (37.0-47.0); Immature Granulocyte Absolute 0.01 K/mm3 (0.00-0.031); Immature Granulocyte Percent A 0.1 % (0-0.5); Lymphocytes Absolute Auto 1.68 K/mm3 (0.9-3.2); Lymphocytes Percent Auto 22.3 % (18.3-44.2); Mean Corpuscular HGB Conc 33.8 g/dl (32-36); Mean Corpuscular Hemoglobin 31.3 pg (26-34); Mean Corpuscular Volume 92.4 fl (80-100); Mean Platelet Volume 11.7 fl (7.4-10.4); Monocytes Absolute Auto 0.6 K/mm3 (0.1-0.6); Monocytes Percent Auto 7.7 % (2.6-8.5); Neutrophils Absolute Auto 5.2 K/mm3 (1.3-6.7); Neutrophils Percent Auto 69.5 % (45.5-73.1); Platelet Count Result 144 k/mm3 (150-375); Red Blood Count 4.48 M/mm3 (4.2-5.4); White Blood Count 7.5 K/mm3 (4.5-10.0)
[2022-08-18 23:11] LABS: Lactic Acid Reflex 2.9 mmol/L (0.7-2.0)
--- NOTE | 2022-08-18 23:14 | ED.FEMALEGU ---
HPI - Female Genitourinary General Chief complaint: Urogenital-Female <David Victor PA-C - Last Filed: 08/19/22 01:46> Stated complaint: abd and flank pain <JESUS Mcclain Last Filed: 08/19/22 01:46> Time Seen by Provider: 08/18/22 22:36 <JESUS Mcclain Last Filed: 08/19/22 01:46> Source: patient <JESUS Mcclain Last Filed: 08/19/22 01:46> Mode of arrival: ambulatory <JESUS Mcclain Last Filed: 08/19/22 01:46> Limitations: no limitations <JEUSS Mcclain Last Filed: 08/19/22 01:46> History of Present Illness HPI Narrative: This is a 41-year-old female with PMH of IBS, nephrolithiasis who presents to the ED via EMS for right flank pain beginning earlier today. She had a stent placed at [facility] yesterday. She states her doctor is Dr. Hamilton. Patient reports that she has had severe pain this evening in the right flank radiating into the right lower abdomen. Reports nausea with many episodes of vomiting today. Denies hematemesis. Denies problems with bowel movements. She is having pain with urination and some hematuria. Reports subjective fevers and chills. Patient states that when they were doing the stent placement surgery they mentioned something afterward about removing a pus pocket in the kidney. She is concerned for infection. <JESUS Mcclain Last Filed: 08/19/22 01:46> Related Data Home medications: Home Medications Medication Instructions Recorded Confirmed alprazolam 1 mg tablet (Xanax) 1 mg PO TID 07/30/19 02/09/22 omeprazole 20 mg capsule,delayed 20 mg DAILY 02/09/22 02/09/22 release <JESUS Mcclain Last Filed: 08/19/22 01:46> Allergies/Adverse reactions: Allergies Allergy/AdvReac Type Severity Reaction Status Date / Time oxycodone [From Percocet] Allergy Intermediate Hallucinati Verified 02/09/22 11:11 ng Iodinated Contrast Media Allergy Unknown Rash Verified 02/09/22 11:11 morphine AdvReac Mild Itching Verified 02/09/22 11:11 <David Victor PA-C - Last Filed: 08/19/22 01:46> [facility] Past Medical History Medical History: Medical History Abdominal pain Anemia Anxiety Asthma Bipolar disorder Chronic diarrhea Depression Hematochezia Hepatitis B History of blood transfusion Kidney disease sponge kidney disease Kidney stones Melena Obesity Ovarian cancer Polyhydramnios PTSD (post-traumatic stress disorder) Sleep apnea Tobacco use UTI (urinary tract infection) <JESUS Mcclain Last Filed: 08/19/22 01:46> Surgical History Surgical History: Surgical History H/O oophorectomy lt H/O tubal ligation History of dilatation and curettage History of salpingectomy lt Hx laparoscopic cholecystectomy 10/19/21 Hx of section <JESUS Mcclain Last Filed: 08/19/22 01:46> Social History Social History: Social History Smoking packs per day: 0.5 Smoking cigarettes per day: 10.0 Years smoked: 25 Smoking pack-years: 12.50 Smoking status: Current every day smoker Tobacco type: cigarettes Smoking end date: 02/19/11 Alcohol intake: current Drinks per week: 8 Alcohol use details: rarely-wine Substance use: current Substance use type: marijuana Other substance usage details: medical marijuana Living arrangements: with family 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 Tearful. HEAD: Normocephalic, atraumatic. EYES: PERRLA and EOMI. ENT: Nares clear, no rhinorrhea or epistaxis. Mucous membranes moist. Oropharynx without tonsillar hypertrophy exudate or
[2022-08-18 23:16] LABS: INR 0.9; Prothrombin Time 13.1 Seconds (11.1-14.7)
[2022-08-18 23:17] LABS: Partial Thromboplastin Time 26.4 SECONDS (22.3-36.8)
[2022-08-18 23:22] LABS: Appearance Urine Slightly Cloudy (Clear); Bilirubin Urine 3+ (Negative); Blood Urine 3+ (Negative); Color Urine Brown (Yellow); Glucose Urine UA 1+ mg/dL (Negative); Ketones Urine 1+ mg/dL (Negative); Leukocyte Esterase Ur 3+ LEU/UL (Negative); Nitrate Urine Positive (Negative); Protein Urine 3+ mg/dL (Negative); Specific Grav Ur 1.015 (1.001-1.035); Urobilinogen Urine >=8.0 mg/dL (<2.0)
[2022-08-18 23:42] LABS: Alanine Aminotransferase 53 U/L (6-35); Albumin Level 4.2 g/dL (3.5-5.1); Alkaline Phosphatase 59 U/L (38-126); Anion Gap 9 mmol/L (8-16); Aspartate Amino Transferase 38 U/L (14-36); Bilirubin,Total 0.6 mg/dL (0.2-1.3); Blood Urea Nitrogen 21 mg/dL (7-17); Calcium 9.4 mg/dL (8.4-10.2); Carbon Dioxide 23 mmol/L (22-30); Chloride 104 mmol/L (98-107); Estimated CRCL calculation 110 ml/min; Estimated Glomerular Filt Rate > 60; Glucose 104 mg/dL (65-110); Potassium 3.7 mmol/L (3.4-5.0); Sodium 136 mmol/L (137-145)
[2022-08-18 23:46] LABS: Add Urine Microscopic? YES; RBC Urine >100 /hpf (0-2)
[2022-08-19] VITALS (28 sets, daily range): BP systolic 99–125; BP diastolic 57–72; PULSE 55–76; RESP 12–23; TEMP 36.7; O2SAT 98–100
[2022-08-19] MEDS: KETOROLAC 15 MG/ML VIAL (*BKC) IV PUSH ×2 (01:05→03:36)
[2022-08-19 01:57] LABS: Reflex Lactic Acid Yes or No Add Lactic
[2022-08-19] MEDS: fentaNYL CITRATE INJ (*CRX) 100 MCG/2 ML VIAL 50 MCG IV PUSH (04:43)
[2022-08-19] MEDS: ONDANSETRON INJ 4 MG/2 ML VIAL IV PUSH (06:22)
== END 2022-08-19 06:24 | disposition short-term general hospital (02) ==
PROVIDERS: Emergency Provider Physician Assistant; PCP Internal Medicine
DX: G89.18 Other acute postprocedural pain (principal); N39.0 Urinary tract infection, site not specified; F17.210 Nicotine dependence, cigarettes, uncomplicated
CPT/HCPCS: 36415; 74176; 80053; 81001; 83605; 85025; 85610; 85730; 87040; 87086; 87147; 87181; 87186; 96361; 96365; 96374; 96375; 96376; 99285; J0696; J1885; J2405; J3010; J7030

== ENCOUNTER 2023-05-31 16:54 | Outpatient (CLI) | payer OTHER, SELFPAY ==
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
--- NOTE | ~2023-05-31 | XR_ITS ---
XR hip BI 2V w AP pelvis 05/31/2023 17:38 Indication: Low back pain Procedure: AP pelvis and 2 views each hip Comparison: No prior studies for comparison. Findings: No fracture, subluxation or dislocation. Pelvic rings are intact. Sacral foramen are symmet lilian. There is no significant joint space narrowing. Impression: 1: No acute bone or joint abnormality. Reviewed, dictated and finalized at location A. Impression: 1: No acute bone or joint abnormality.
== END 2023-05-31 16:55 | disposition home or self-care (01) ==
LOC: ANHIMG 16:55
PROVIDERS: PCP Internal Medicine; Visit Provider Internal Medicine
DX: M47.896 Other spondylosis, lumbar region (principal)
CPT/HCPCS: 72100; 73521

== ENCOUNTER 2024-01-23 10:21 | Outpatient (CLI) | payer OTHER, SELFPAY ==
--- NOTE | ~2024-01-23 | XR_ITS ---
EXAMINATION: XR foot RT min 3V DATE: 01/23/2024 10:45 INDICATION: Right great toe pain TECHNIQUE: Dorsoplantar, two oblique and lateral views of the right foot were obtained. COMPARISON: None. FINDINGS: Alignment is normal. No fracture. Mild polyarticular osteoarthritis at the calcaneocuboid, second and third tarsal metatarsal, first metatarsophalangeal and multiple predominantly distal interphalangeal joints. No erosions to suggest inflammatory arthritis. No periosteal reaction. Soft tissues are unre markable. No ankle joint effusion. IMPRESSION: 1. Typical pattern of mild polyarticular osteoarthritis in the right foot. Reviewed, dictated and finalized at location A. ING SERVICES OFFICER
== END 2024-01-23 10:22 | disposition home or self-care (01) ==
PROVIDERS: PCP Internal Medicine; Visit Provider Internal Medicine
DX: M19.071 Primary osteoarthritis, right ankle and foot (principal)
CPT/HCPCS: 73630

== ENCOUNTER 2024-03-06 23:27 | Emergency (ER) | payer OTHER, SELFPAY ==
--- NOTE | ~2024-03-06 | CT_ITS ---
EXAMINATION: CT abdomen pelvis wo con DATE: 03/07/2024 00:59 INDICATION: Bilateral flank pain. Medullary sponge kidney. TECHNIQUE: Computed tomography (CT) of the abdomen and pelvis was performed without intravenous contr ast. Automated exposure control and iterative reconstruction technique were employed. The dose-length product was 1017.92 mGy-cm. COMPARISON: CT abdomen and pelvis 08/18/2022 FINDINGS: The visualized portions of the lung bases are clear without pneumonia or pleural effusion. The heart size is normal. No pericardial effusion. There are bilateral breast implants. The liver is normal. Calcifications in the spleen are consistent with old granulomatous disease. There are changes of cholecystectomy. The pancreas and adrenal glands are normal. There is a 2 mm stone in right kidne y. Left kidney is normal. There are no dilated loops of bowel. The appendix is not visualized. There are no pathologically enlarged lymph nodes. There is physiologic fluid in the pelvis. There is mild t horacic and lumbar spondylosis. IMPRESSION: 1. 2 mm nonobstructing right kidney stone. Reviewed, dictated and finalized at location A. NG PULLER
--- NOTE | ~2024-03-06 | XR_ITS ---
EXAMINATION: XR chest 1V portable DATE: 03/07/2024 00:36 INDICATION: Back pain. Weakness. TECHNIQUE: A single frontal view of the chest was obtained. COMPARISON: Chest 2 views 08/20/2017, CT abdomen and pelvis 03/07/2024 FINDINGS: There is no pneumonia, pleural effusion, or pneumothorax. The heart size is normal. Surgica l clips in the right upper quadrant are likely from cholecystectomy. IMPRESSION: 1. No acute cardiopulmonary disease. Reviewed, dictated and finalized at location A. MATION MANAGER
[2024-03-06 23:33] VITALS: BP 129/82; PULSE 70; RESP 18; TEMP 36.3; O2SAT 98
[2024-03-06 23:59] VITALS: BP 116/73; PULSE 88; RESP 16; O2SAT 96
[2024-03-07] VITALS (23 sets, daily range): BP systolic 86–111; BP diastolic 41–88; PULSE 52–86; RESP 12–18; O2SAT 95–100
--- NOTE | 2024-03-07 00:15 | ECG_ITS ---
Test Date: 2024-03-07 00:44:26 Measurements Intervals [place] Rate: 71 P: 58 HI: 147 QRS: 42 QRSD: 95 T: 47 QT: 373 QTc: 405 Interpretive Statements SINUS RHYTHM POOR R WAVE PROGRESSION No previous ECG available for comparison Electronically Signed On 03-07-2024 14:40:54 OUTBOUND SALES REPRESENTATIVE by Sharita Carvalho M.D.
--- NOTE | 2024-03-07 00:39 | ED_ITS ---
HPI - General Adult General Chief complaint: Weakness Stated complaint: weakness, dizziness, lethergy Time Seen by Provider: 03/06/24 23:34 History of Present Illness HPI narrative: This is a 43-year-old female with history of medullary sponge kidney disease presenting for back pain. Patient says for last 6 days she has had back pain, worse on the right than the left. Pain is worse with movement. She also has pain in her left glute. She has felt too weak to get out of bed and has headaches, nausea. She has been having subjective fevers at night but has not taken a temperature. Patient denies chest pain, difficulty breathing, or urinary symptoms. She does take prophylactic cephalexin for recurrent UTIs due to her medullary sponge kidney disease. Patient denies urinary retention or incontinence. No saddle anesthesia. No weakness to her legs. No history of IV drug abuse or known cancer. Patient works at a alf. Related Data Home Medications ?Medication ?Instructions ?Recorded ?Confirmed ?Last Taken ?Type alprazolam 1 mg tablet (Xanax) 1 mg PO TID 07/30/19 02/09/22 10/18/21 History omeprazole 20 mg capsule,delayed 20 mg DAILY 02/09/22 02/09/22 Unknown History release Allergies Allergy/AdvReac Type Severity Reaction Status Date / Time oxycodone (From Percocet) Allergy Intermediate Hallucinati Verified 03/06/24 23:29 ng Iodinated Contrast Media Allergy Unknown Rash Verified 03/06/24 23:29 morphine AdvReac Mild Itching Verified 03/06/24 23:29 [facility] Past Medical History Medical History Abdominal pain Anemia Anxiety Asthma Bipolar disorder Chronic diarrhea Depression Hematochezia Hepatitis B History of blood transfusion Kidney disease sponge kidney disease Kidney stones Melena Obesity Ovarian cancer Polyhydramnios PTSD (post-traumatic stress disorder) Sleep apnea Tobacco use UTI (urinary tract infection) Surgical History Surgical History H/O oophorectomy lt H/O tubal ligation History of dilatation and curettage History of salpingectomy lt Hx laparoscopic cholecystectomy 10/19/21 Hx of section Social History Social History (Reviewed 02/09/22 @ 18:49 by RUSSEL Reis Smoking packs per day: 0.5 Smoking cigarettes per day: 10.0 Years smoked: 25 Smoking pack-years: 12.50 Smoking status: Current every day smoker Tobacco type: cigarettes Smoking end date: 02/19/11 Alcohol intake: current Drinks per week: 8 Alcohol use details: rarely-wine Substance use: current Substance use type: marijuana Other substance usage details: medical marijuana Living arrangements: with family 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 Head: atraumatic. EYES: EOMI, NOSE: Atraumatic NECK: Trachea midline RESPIRATORY: No increased rate of breathing CTAB CARDIOVASCULAR: RRR, no peripheral edema ABDOMINAL: Non-distended, soft nontender no guarding rebound MUSCULOSKELETAl: No obvious deformities, straight leg raise negative bilaterally NEURO: Alert. Cranial nerves 2-12 grossly intact. Sensation light touch, motor function cerebellar function intact for 4 extremities. Gait exam was normal. No saddle anesthesia SKIN:: Warm, dry. Normal color PSYCHIATRIC: Normal affect Course Vital Signs Vital signs: Vital Signs Temperature 97.4 F L 03/06/24 23:33 Pulse Rate 70 03/06/24 23:33 Respiratory Rate 18 03/06/24 23:33 Blood Pressure 129/82 03/06/24 23:33 Pulse Oximetry 98 03/06/24 23:33 Oxygen Delivery Room Air 03/06/24 23:33 Temperature 97.4 F L 03/06/24 23:33 Pulse Rate 54 L 03/07/24 05:46 Respiratory Rate 13 03/07/24 05:46 Blood Pressure 90/50 L 03/07/24 05:46 Pulse Oximetry 96 03/07/24 05:46 Oxygen Delivery Room Air 03/07/24 00:23 Medical Decision Making MDM Narrative Medical decision making narrative: -Course: 43-year-old female presenting ED with chief complaint of back pain/not feeling well/WILSON/nausea/fatigue. Workup including laboratory studies, CT abdomen pelvis chest x-ray and viral swabs and urinalysis did not reveal an obvious cause of her symptoms. VSS and she is afebrile. Her lower back pain appears to be musculoskeletal and there neurologic deficits or red flags. Overall her presentation is most consistent with acute viral syndrome. Patient received pain medication and on re-evaluation she still has some pain but is able to ambulate and move around the room. Patient will be discharged with pain control and muscle relaxers. She has been encouraged follow-up with primary care physician. She has been told to return to the ED if her condition is to worsen or she develops any neurologic symptoms. -DDX includes but is not limited to: Viral illness, UTI/pyelo, sciatica, muscle strain, -Hx from independent Sources: Labs and Imaging reviewed -Shared decision making / Disposition: discharged. Vital Signs Vital Signs: Vital Signs Temperature 97.4 F L 03/06/24 23:33 Pulse Rate 70 03/06/24 23:33 Respiratory Rate 18 03/06/24 23:33 Blood Pressure 129/82 03/06/24 23:33 Pulse Oximetry 98 03/06/24 23:33 Oxygen Delivery Room Air 03/06/24 23:33 Temperature 97.4 F L 03/06/24 23:33 Pulse Rate 54 L 03/07/24 05:46 Respiratory Rate 13 03/07/24 05:46 Blood Pressure 90/50 L 03/07/24 05:46 Pulse Oximetry 96 03/07/24 05:46 Oxygen Delivery Room Air 03/07/24 00:23 Lab Data 03/07/24 00:37 03/07/24 00:37 Labs: Lab Results 03/07/24 03/07/24 03/07/24 Range/Units 00:37 01:17 03:35 WBC 5.7 (4.5-10.0) K/mm3 RBC 4.84 (4.2-5.4) M/mm3 Hgb 15.2 H (12.0-15.0) g/dL Hct 44.1 (37.0-47.0) % MCV 91.1 (80-100) fl MCH 31.4 (26-34) pg MCHC 34.5 (32-36) g/dl RDW 13.1 (11.5-14.5) % Plt Count 147 L (150-375) k/mm3 MPV 11.6 H (7.4-10.4) fl Immature Gran % (Auto) 0.2 (0-0.5) % Neut % (Auto) 58.2 (45.5-73.1) % Lymph % (Auto) 31.6 (18.3-44.2) % [place] % (Auto) 8.5 (2.6-8.5) % Eos % (Auto) 1.1 (0-4.4) % Baso % (Auto) 0.4 (0.2-1.2) % Lymph # (Auto) 1.79 (0.9-3.2) K/mm3 [place] # (Auto) 0.5 (0.1-0.6) K/mm3 Eos # (Auto) 0.1 (0-0.3) K/mm3 Baso # (Auto) 0.0 (0.0-0.1) K/mm3 Abs Immat Gran (auto) 0.01 (0.00-0.031) K/mm3 Absolute Neuts (auto) 3.3 (1.3-6.7) K/mm3 Absolute Nucleated RBC 0.000 (0.0-0.012) K/mm3 Nucleated RBC % 0.0 (0.0-0.2) % Sodium 139 (137-145) mmol/L Potassium 4.0 (3.4-5.0) mmol/L Chloride 107 (98-107) mmol/L Carbon Dioxide 23 (22-30) mmol/L Anion Gap 9 (4-12) mmol/L BUN 20 H (7-17) mg/dL Creatinine 0.76 (0.7-1.0) mg/dL Estim Creat Clear Calc 87 ml/min Estimated GFR > 60 (59 - ) Glucose 89 (65-110) mg/dL Calcium 10.1 (8.4-10.2) mg/dL Total Bilirubin 0.5 (0.2-1.3) mg/dL AST 25 (14-36) U/L ALT 38 H (6-35) U/L Alkaline Phosphatase 67 (38-126) U/L Total Protein 7.0 (6.3-8.2) g/dL Albumin 4.5 (3.5-5.1) g/dL Urine Color Yellow (Yellow) Urine Appearance Clear (Clear) Urine pH 6.0 (5.0-9.0) Ur Specific [place] 1.022 (1.001-1.035) Urine Protein Negative (Negative) mg/dL Urine Glucose (UA) Negative (Negative) mg/dL Urine Ketones Negative (Negative) mg/dL Ur Blood (Man) Negative (Negative) Urine Nitrate Negative (Negative) Urine Bilirubin Negative (Negative) Urine Urobilinogen 1.0 (<2.0) mg/dL Leukocyte Esterase Rfl Negative (Negative) SCARLET/UL POC Urine HCG, Qual (Negative) Influenza A (RT-PCR) Negative (Negative) Influenza B (RT-PCR) Negative (Negative) RSV (RT-PCR) Negative (Negative) SARS-CoV-2 RNA (RT-PCR) Negative (Negative) 03/07/24 Range/Units 04:35 WBC (4.5-10.0) K/mm3 RBC (4.2-5.4) M/mm3 Hgb (12.0-15.0) g/dL Hct (37.0-47.0) % MCV (80-100) fl MCH (26-34) pg MCHC (32-36) g/dl RDW (11.5-14.5) % Plt Count (150-375) k/mm3 MPV (7.4-10.4) fl Immature Gran % (Auto) (0-0.5) % Neut % (Auto) (45.5-73.1) % Lymph % (Auto) (18.3-44.2) % [place] % (Auto) (2.6-8.5) % Eos % (Auto) (0-4.4) % Baso % (Auto) (0.2-1.2) % Lymph # (Auto) (0.9-3.2) K/mm3 [place] # (Auto) (0.1-0.6) K/mm3 Eos # (Auto) (0-0.3) K/mm3 Baso # (Auto) (0.0-0.1) K/mm3 Abs Immat Gran (auto) (0.00-0.031) K/mm3 Absolute Neuts (auto) (1.3-6.7) K/mm3 Absolute Nucleated RBC (0.0-0.012) K/mm3 Nucleated RBC % (0.0-0.2) % Sodium (137-145) mmol/L Potassium (3.4-5.0) mmol/L Chloride (98-107) mmol/L Carbon Dioxide (22-30) mmol/L Anion Gap (4-12) mmol/L BUN (7-17) mg/dL Creatinine (0.7-1.0) mg/dL Estim Creat Clear Calc ml/min Estimated GFR (59 - ) Glucose (65-110) mg/dL Calcium (8.4-10.2) mg/dL Total Bilirubin (0.2-1.3) mg/dL AST (14-36) U/L ALT (6-35) U/L Alkaline Phosphatase (38-126) U/L Total Protein (6.3-8.2) g/dL Albumin (3.5-5.1) g/dL Urine Color (Yellow) Urine Appearance (Clear) Urine pH (5.0-9.0) Ur Specific [place] (1.001-1.035) Urine Protein (Negative) mg/dL Urine Glucose (UA) (Negative) mg/dL Urine Ketones (Negative) mg/dL Ur Blood (Man) (Negative) Urine Nitrate (Negative) Urine Bilirubin (Negative) Urine Urobilinogen (<2.0) mg/dL Leukocyte Esterase Rfl (Negative) SCARLET/UL POC Urine HCG, Qual Negative (Negative) Influenza A (RT-PCR) (Negative) Influenza B (RT-PCR) (Negative) RSV (RT-PCR) (Negative) SARS-CoV-2 RNA (RT-PCR) (Negative) Discharge Plan Discharge Clinical Impression: Back pain, Acute viral syndrome Patient Disposition: Home, Self-Care Condition: Stable Instructions: Antibiotic Form, Acute Low Back Pain (ED), Viral Syndrome (ED) Additional Instructions: You were seen in the emergency department for not feeling well and back pain. Your workup here did not reveal an obvious cause of her symptoms. Please trial a course of NSAIDs and muscle relaxers to see if your condition over improves over the next 1-2 days. If your condition is to worsen or you develop any new symptoms please return to the emergency department for re-evaluation. Patient Language: Ghanaian Prescriptions: New ibuprofen 800 mg tablet 800 mg PO TID PRN (Reason: pain) 7 Days Qty: 21 0RF acetaminophen 500 mg tablet 1,000 mg PO TID PRN (Reason: mahesh) 7 Days Qty: 42 0RF methocarbamol 750 mg tablet 1,500 mg PO TID Qty: 35 0RF No Action alprazolam [Xanax] 1 mg Tablet 1 mg PO TID omeprazole 20 mg capsule,delayed release(DR/EC) 20 mg DAILY azithromycin 250 mg tablet See Rx Instructions .ROUTE .COMPLEX Qty: 6 0RF Rx Instructions: take 500 mg today (day 1), then 250 mg for 4 days (days 2-5) albuterol sulfate 90 mcg/actuation HFA aerosol inhaler 2 puff inhalation QID PRN (Reason: shortness of breath or wheezing) Qty: 6.7 0RF (DME) Space Chamber Spacer See Rx Instructions .ROUTE .MEDSUPPLY Qty: 1 0RF Rx Instructions: As directed methylprednisolone [Medrol (Mick)] 4 mg tablets,dose pack See Rx Instructions PO .COMPLEX Qty: 21 0RF Rx Instructions: orally per package directions Follow-up/Referrals: Augusto Taylor MD [Primary Care Provider] -
[2024-03-07 00:47] LABS: Basophils Percent Auto 0.4 % (0.2-1.2); Eosinophils Absolute Auto 0.1 K/mm3 (0-0.3); Eosinophils Percent Auto 1.1 % (0-4.4); Hematocrit 44.1 % (37.0-47.0); Hemoglobin 15.2 g/dL (12.0-15.0); Immature Granulocyte Absolute 0.01 K/mm3 (0.00-0.031); Immature Granulocyte Percent A 0.2 % (0-0.5); Lymphocytes Absolute Auto 1.79 K/mm3 (0.9-3.2); Lymphocytes Percent Auto 31.6 % (18.3-44.2); Mean Corpuscular HGB Conc 34.5 g/dl (32-36); Mean Corpuscular Hemoglobin 31.4 pg (26-34); Mean Corpuscular Volume 91.1 fl (80-100); Mean Platelet Volume 11.6 fl (7.4-10.4); Monocytes Absolute Auto 0.5 K/mm3 (0.1-0.6); Monocytes Percent Auto 8.5 % (2.6-8.5); Neutrophils Absolute Auto 3.3 K/mm3 (1.3-6.7); Neutrophils Percent Auto 58.2 % (45.5-73.1); Platelet Count Result 147 k/mm3 (150-375); Red Blood Count 4.84 M/mm3 (4.2-5.4); Red Cell Distribution Width 13.1 % (11.5-14.5); White Blood Count 5.7 K/mm3 (4.5-10.0)
[2024-03-07 00:58] LABS: Alanine Aminotransferase 38 U/L (6-35); Albumin Level 4.5 g/dL (3.5-5.1); Alkaline Phosphatase 67 U/L (38-126); Anion Gap 9 mmol/L (4-12); Aspartate Amino Transferase 25 U/L (14-36); Bilirubin,Total 0.5 mg/dL (0.2-1.3); Blood Urea Nitrogen 20 mg/dL (7-17); Calcium 10.1 mg/dL (8.4-10.2); Carbon Dioxide 23 mmol/L (22-30); Chloride 107 mmol/L (98-107); Estimated CRCL calculation 87 ml/min; Estimated Glomerular Filt Rate > 60; Glucose 89 mg/dL (65-110); Sodium 139 mmol/L (137-145)
[2024-03-07] MEDS: HYDROmorphone HCL INJ (*CRX) 1 MG/ML SYR 0.5 MG IV PUSH (01:05)
[2024-03-07] MEDS: ACETAMINOPHEN 500 MG TABLET 1000 MG PO (01:05)
[2024-03-07] MEDS: SODIUM CHLORIDE 0.9% IV 1,000 ML 999 ML IV CONT (01:07)
[2024-03-07 03:14] LABS: Influenza A QL RT-PCR Negative (Negative); Influenza B QL RT-PCR Negative (Negative); RSV RNA, RT-PCR Negative (Negative); SARS-CoV-2 RNA PCR Negative (Negative)
[2024-03-07 03:52] LABS: Add Urine Microscopic? NO; Appearance Urine Clear (Clear); Bilirubin Urine Negative (Negative); Blood Urine Negative (Negative); Color Urine Yellow (Yellow); Glucose Urine UA Negative (Negative); Ketones Urine Negative (Negative); Leukocyte Esterase Ur Negative LEU/UL (Negative); Nitrate Urine Negative (Negative); Protein Urine Negative (Negative); Specific Grav Ur 1.022 (1.001-1.035)
[2024-03-07] MEDS: HYDROmorphone HCL INJ (*CRX) 1 MG/ML SYR (04:01)
[2024-03-07 04:37] LABS: BEDSIDEPREGUCG Negative (Negative)
[2024-03-07] MEDS: diazePAM INJ (*CRX) 10 MG/2 ML SYRINGE 5 MG IV PUSH (07:33)
[2024-03-07] MEDS: KETOROLAC 15 MG/ML VIAL (*BKC) IV PUSH (07:34)
== END 2024-03-07 08:56 | disposition home or self-care (01) ==
PROVIDERS: Emergency Provider Emergency Medicine; PCP Internal Medicine
DX: B34.9 Viral infection, unspecified (principal); M54.9 Dorsalgia, unspecified; Z20.822 Contact with and (suspected) exposure to COVID-19; Q61.5 Medullary cystic kidney; J45.909 Unspecified asthma, uncomplicated; G47.30 Sleep apnea, unspecified; F31.9 Bipolar disorder, unspecified; F43.10 Post-traumatic stress disorder, unspecified; Z87.442 Personal history of urinary calculi; Z85.43 Personal history of malignant neoplasm of ovary; Z87.891 Personal history of nicotine dependence; Z87.440 Personal history of urinary (tract) infections; Z90.49 Acquired absence of other specified parts of digestive tract; Z90.79 Acquired absence of other genital organ(s); Z90.721 Acquired absence of ovaries, unilateral; R94.31 Abnormal electrocardiogram [ECG] [EKG]
CPT/HCPCS: 36415; 71045; 74176; 80053; 81003; 81025; 85025; 87637; 93005; 96361; 96374; 96375; 96376; 99284; A9270; J1171; J1885; J3360; J7030

== ENCOUNTER 2024-07-19 14:56 | Observation (INO) | payer OTHER, SELFPAY ==
[2024-07-19] VITALS (10 sets, daily range): BP systolic 109–138; BP diastolic 85–94; PULSE 100–121; RESP 13–28; TEMP 36.2–36.8; O2SAT 96–100; BMI 28.9
--- NOTE | ~2024-07-19 | CT_ITS ---
CTA brain carotid Ordering provider: Barry Sears MD History: . AMS . Comparison: None. Technique: CT angiogram head and neck was performed following timed intravenous injection of contrast . Thin slice axial images and reformatted coronal images were obtained. Three dimensional reformatted images of the brain were also obtained using a [employer] workstation. Radiation reduction technique ut ilized.The dose-length product was 993.47 mGy-cm. 100 mL Omnipaque 350 was given IV. FINDINGS: HEAD: --ANTERIOR AND MIDDLE CEREBRAL ARTERIES AND BRANCHES: Normal caliber and contour. --INTERNAL CAROTID ARTERIES: Normal caliber and contour. --BASILAR ARTERY AND BRANCHES: Normal caliber and contour. No atheromatous disease. Focal area of calcification is seen in the right pontine cistern is is likely dural calcification whi ch is seen on the noncontrast exam.. --POSTERIOR CEREBRAL ARTERIES: Normal caliber and contour --POSTERIOR COMMUNICATING ARTERIES: Not visualized which is probably related to congenital absence or small size. --ANEURYSM: None visualized. --BRAIN: Please refer to report of CT head performed the same day. --BONES AND SUPERFICIAL SOFT TISSUES: Please refer to report of CT head performed the same day. --PARANASAL SINUSES AND MASTOIDS: Please refer to report of CT head done the same day. NECK: --RIGHT CERVICAL CAROTID SYSTEM: Normal caliber and contour. Percent stenosis per NASCET criteria is 0%. No carotid dissection. Otherwise, no significant atheromatous disease or stenosis of the cervical carotid system. --LEFT CERVICAL CAROTID SYSTEM: Normal caliber and contour. Percent stenosis per NASCET criteria is 0%. No carotid dissection. Otherwise, no significant atheromatous disease or stenosis of the cervical carotid system. --VERTEBRAL ARTERIES: Normal caliber and contour. --VISUALIZED AORTIC ARCH AND BRANCHING VESSELS: Normal caliber and contour. No significant atheromato us disease. --SOFT TISSUES: Normal. Left breast implant. Nodule in the right lobe of the thyroid. --CERVICAL SPINE: Normal. IMPRESSION: 1. Normal CTA head and neck. Percent stenosis per NASCET criteria is 0%. Reviewed, dictated and finalized at location A.
--- NOTE | ~2024-07-19 | CT_ITS ---
CT brain wo con Ordering provider: Barry Sears MD History: 43 years Female with . AMS . Comparison: None. Technique: CT of the head without contrast. Radiation reduction technique utilized.The dose-length pr oduct was 605.33 mGy-cm. FINDINGS: BRAIN PARENCHYMA AND CSF SPACES: No midline shift, mass effect or hemorrhage. The brain parenchyma a nd CSF spaces are otherwise normal. VISUALIZED PARANASAL SINUSES: Well aerated. MASTOIDS: Well aerated. BONES: The bones appear intact. SOFT TISSUES: Visualized nasopharynx is normal. Superficial soft tissues are normal. IMPRESSION: No acute intracranial findings. Reviewed, dictated and finalized at location A.
--- NOTE | ~2024-07-19 | XR_ITS ---
XR chest 1V portable Ordering provider: Barry Sears MD History: 43 years Female with . AMS . Comparison: March 07, 2024 FINDINGS: MEDIASTINUM: The cardiac silhouette is not enlarged. LUNGS: No effusions or pneumothorax. Opacification in the right lung base medially is noted. OTHER: No free air under the diaphragm. IMPRESSION: Right basilar atelectasis versus pneumonia. Clinical correlation and follow-up advised Reviewed, dictated and finalized at location A.
--- NOTE | 2024-07-19 15:04 | ECG_ITS ---
Test Date: 2024-07-19 15:05:56 Measurements Intervals [place] Rate: 119 P: 55 [place]: 137 QRS: 75 QRSD: 109 T: 49 QT: 347 QTc: 488 Interpretive Statements SINUS TACHYCARDIA DELAYED PRECORDIAL R/S TRANSITION BORDERLINE ST-T WAVE ABNORMALITY- ANT/INF LEADS ABNORMAL ECG Compared to ECG 03/07/2024 00:44:26 HEART RATE HAS INCREASED Electronically Signed On 07-20-2024 06:48:15 CDT by Gomez Gauthier D.O.
[2024-07-19 15:26] LABS: Basophils Percent Auto 0.2 % (0.2-1.2); Eosinophils Percent Auto 0.2 % (0-4.4); Hematocrit 44.6 % (37.0-47.0); Immature Granulocyte Absolute 0.03 K/mm3 (0.00-0.031); Immature Granulocyte Percent A 0.5 % (0-0.5); Immature Platelet Fraction Pct 6.6 % (0.9-11.2); Lymphocytes Absolute Auto 0.96 K/mm3 (0.9-3.2); Lymphocytes Percent Auto 14.5 % (18.3-44.2); Mean Corpuscular HGB Conc 33.6 g/dl (32-36); Mean Corpuscular Hemoglobin 30.8 pg (26-34); Mean Corpuscular Volume 91.6 fl (80-100); Mean Platelet Volume 11.5 fl (7.4-10.4); Monocytes Absolute Auto 0.4 K/mm3 (0.1-0.6); Monocytes Percent Auto 5.4 % (2.6-8.5); Neutrophils Absolute Auto 5.3 K/mm3 (1.3-6.7); Neutrophils Percent Auto 79.2 % (45.5-73.1); Platelet Count Result 137 k/mm3 (150-375); Red Blood Count 4.87 M/mm3 (4.2-5.4); Red Cell Distribution Width 12.6 % (11.5-14.5); White Blood Count 6.6 K/mm3 (4.5-10.0)
--- NOTE | 2024-07-19 15:26 | ED_ITS ---
HPI - Altered Mental Status General Chief Complaint: Altered Mental Status Stated Complaint: responsive to pain Time Seen by Provider: 07/19/24 15:01 History of Present Illness HPI narrative: Patient is a 43-year-old female who presents ER with decreased responsiveness. Had been drinking alcohol last night. She has been sleeping all day and is only responding to pain for her boyfriend. Patient does have a bottle of Xanax but appears it has been taken appropriately. Filled on 07/02 and is only missing 34 tablets. No evidence of trauma. Pupils equal round reactive to light. No suppressed respiratory effort. Significant other arrives reports patient trying 2 bottles of sweet wine last night and then also took 3 mg of Xanax. She typically takes 3 mg at bedtime to help sleep. This occurred at 10:00 p.m. and she woke up at night saying she is having a nightmare in some I was trying to kill her. He reports since he checked on her at 8:00 a.m. she has just been sleeping all day and does not respond to sternal rubs for him. Related Data Home Medications ?Medication ?Instructions ?Recorded ?Confirmed ?Last Taken ?Type alprazolam 1 mg tablet (Xanax) 1 mg PO TID 07/30/19 02/09/22 10/18/21 History omeprazole 20 mg capsule,delayed 20 mg DAILY 02/09/22 02/09/22 Unknown History release Allergies Allergy/AdvReac Type Severity Reaction Status Date / Time oxycodone (From Percocet) Allergy Intermediate Hallucinati Verified 07/19/24 15:05 ng Iodinated Contrast Media Allergy Unknown Rash Verified 07/19/24 15:05 morphine AdvReac Mild Itching Verified 07/19/24 15:05 Review of Systems 2 Review of Systems: ROS unobtainable: Yes unobtainable due to mental status PMFSH Past Medical History Medical History Abdominal pain Anemia Anxiety Asthma Bipolar disorder Chronic diarrhea Depression Hematochezia Hepatitis B History of blood transfusion Kidney disease sponge kidney disease Kidney stones Melena Obesity Ovarian cancer Polyhydramnios PTSD (post-traumatic stress disorder) Sleep apnea Tobacco use UTI (urinary tract infection) Surgical History Surgical History H/O oophorectomy lt H/O tubal ligation History of dilatation and curettage History of salpingectomy lt Hx laparoscopic cholecystectomy 10/19/21 Hx of section Social History Social History Smoking packs per day: 0.5 Smoking cigarettes per day: 10.0 Years smoked: 25 Smoking pack-years: 12.50 Smoking status: Current every day smoker Tobacco type: cigarettes Smoking end date: 02/19/11 Alcohol intake: current Drinks per week: 8 Alcohol use details: rarely-wine Substance use: current Substance use type: marijuana Other substance usage details: medical marijuana Living arrangements: with family 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 HEAD: Normocephalic, atraumatic. EYES: PERRL and EOMI. ENT: Mucous membranes moist. CHEST: Clear to auscultation. No respiratory distress. HEART: Tachycardic regular. Normal peripheral pulses. ABDOMEN: Soft, nontender, nondistended. EXTREMITIES: Normal range of motion. No edema. SKIN: Warm, dry, no rash. NEURO: Sleeping. With sternal rub she will move her right arm towards her chest. She pulls back each leg with nail bed pressure. Course Course Emergency Course: Discussed with hospitalist service. They will come down and evaluate the patient. Also consulted payroll coordinator. Admit to ICU, continue to hydrate, will give narcn. Vital Signs Vital signs: Vital Signs Temperature 97.2 F L 07/19/24 14:57 Pulse Rate 113 H 07/19/24 14:57 Respiratory Rate 17 07/19/24 14:57 Blood Pressure 113/87 07/19/24 14:57 Pulse Oximetry 97 07/19/24 14:57 Temperature 98.1 F 07/19/24 18:18 Pulse Rate 101 H 07/19/24 18:18 Respiratory Rate 15 07/19/24 18:18 Blood Pressure 109/88 07/19/24 18:18 Pulse Oximetry 100 07/19/24 18:18 Oxygen Delivery Room Air 07/19/24 15:36 MDM - Altered Mental Status Lab Data 07/19/24 15:18 07/19/24 15:18 Labs: Lab Results 07/19/24 07/19/24 07/19/24 Range/Units 15:18 15:21 15:36 WBC 6.6 (4.5-10.0) K/mm3 RBC 4.87 (4.2-5.4) M/mm3 Hgb 15.0 (12.0-15.0) g/dL Hct 44.6 (37.0-47.0) % MCV 91.6 (80-100) fl MCH 30.8 (26-34) pg MCHC 33.6 (32-36) g/dl RDW 12.6 (11.5-14.5) % Plt Count 137 L (150-375) k/mm3 MPV 11.5 H (7.4-10.4) fl Immature Gran % (Auto) 0.5 (0-0.5) % Neut % (Auto) 79.2 H (45.5-73.1) % Lymph % (Auto) 14.5 L (18.3-44.2) % [place] % (Auto) 5.4 (2.6-8.5) % Eos % (Auto) 0.2 (0-4.4) % Baso % (Auto) 0.2 (0.2-1.2) % Lymph # (Auto) 0.96 (0.9-3.2) K/mm3 [place] # (Auto) 0.4 (0.1-0.6) K/mm3 Eos # (Auto) 0.0 (0-0.3) K/mm3 Baso # (Auto) 0.0 (0.0-0.1) K/mm3 Abs Immat Gran (auto) 0.03 (0.00-0.031) K/mm3 Absolute Neuts (auto) 5.3 (1.3-6.7) K/mm3 Absolute Nucleated RBC 0.000 (0.0-0.012) K/mm3 Nucleated RBC % 0.0 (0.0-0.2) % % Immature Plt Fraction 6.6 (0.9-11.2) % Sodium 144 (137-145) mmol/L Potassium 4.3 (3.4-5.0) mmol/L Chloride 105 (98-107) mmol/L Carbon Dioxide 28 (22-30) mmol/L Anion Gap 11 (4-12) mmol/L BUN 20 H (7-17) mg/dL Creatinine 0.62 L (0.7-1.0) mg/dL Estim Creat Clear Calc 126 ml/min Estimated GFR > 60 (59 - ) Glucose 109 (65-110) mg/dL Calcium 9.7 (8.4-10.2) mg/dL Total Bilirubin 0.5 (0.2-1.3) mg/dL AST 32 (14-36) U/L ALT 24 (6-35) U/L Alkaline Phosphatase 64 (38-126) U/L Total Protein 8.0 (6.3-8.2) g/dL Albumin 4.9 (3.5-5.1) g/dL Procalcitonin < 0.0 ng/mL TSH 0.557 (0.465-4.680) uIU/mL Urine Color Yellow (Yellow) Urine Appearance Clear (Clear) Urine pH 5.5 (5.0-9.0) Ur Specific [place] 1.019 (1.001-1.035) Urine Protein Trace (Negative) mg/dL Urine Glucose (UA) Negative (Negative) mg/dL Urine Ketones Trace H (Negative) mg/dL Ur Blood (Man) Negative (Negative) Urine Nitrate Negative (Negative) Urine Bilirubin Negative (Negative) Urine Urobilinogen 1.0 (<2.0) mg/dL Add Ur Microanalysis Reviewed Leukocyte Esterase Rfl Negative (Negative) SCARLET/UL Urine RBC 0-2 (0-2) /hpf Urine WBC 0-5 (0-3) /hpf Ur Squamous Epith Cells None seen (Few) /hpf Urine Bacteria None seen /hpf Urine Casts 3-5 POC Urine HCG, Qual Negative (Negative) Salicylates < 1.0 L (2-20) mg/dL Urine Opiates Screen Negative (Negative) Urine Methadone Screen Negative (Negative) Acetaminophen < 10 L (10-30) ug/mL Ur Barbiturates Screen Negative (Negative) Ur Phencyclidine Scrn Negative (Negative) Ur Amphetamine Screen Negative (Negative) U Benzodiazepines Scrn Positive A (Negative) Urine Cocaine Screen Negative (Negative) U Cannabinoids Screen Negative (Negative) Ethyl Alcohol < 10 (<10) mg/dL Imaging Data Radiologist's impression: ITS Impressions Head CT 07/19/24 15:54 IMPRESSION: No acute intracranial findings. Critical Care Time Critical Care Time Critical Care Time: Yes Total Critical Care Time: 35 Discharge Plan Discharge Clinical Impression: Altered mental status Patient Disposition: Still a Patient Condition: Guarded Prognosis Patient Language: Citizen Of [place] Prescriptions: No Action alprazolam [Xanax] 1 mg Tablet 1 mg PO TID omeprazole 20 mg capsule,delayed release(DR/EC) 20 mg DAILY azithromycin 250 mg tablet See Rx Instructions .ROUTE .COMPLEX Qty: 6 0RF Rx Instructions: take 500 mg today (day 1), then 250 mg for 4 days (days 2-5) albuterol sulfate 90 mcg/actuation HFA aerosol inhaler 2 puff inhalation QID PRN (Reason: shortness of breath or wheezing) Qty: 6.7 0RF (DME) Space Chamber Spacer See Rx Instructions .ROUTE .MEDSUPPLY Qty: 1 0RF Rx Instructions: As directed methylprednisolone [Medrol (Mick)] 4 mg tablets,dose pack See Rx Instructions PO .COMPLEX Qty: 21 0RF Rx Instructions: orally per package directions ibuprofen 800 mg tablet 800 mg PO TID PRN (Reason: pain) 7 Days Qty: 21 0RF acetaminophen 500 mg tablet 1,000 mg PO TID PRN (Reason: mahesh) 7 Days Qty: 42 0RF methocarbamol 750 mg tablet 1,500 mg PO TID Qty: 35 0RF Follow-up/Referrals: Augusto Taylor MD [Primary Care Provider] -
[2024-07-19 15:34] LABS: Acetaminophen < 10 ug/mL (10-30); Ethanol < 10 mg/dL (<10); Salicylate < 1.0 mg/dL (2-20)
[2024-07-19 15:35] LABS: Alanine Aminotransferase 24 U/L (6-35); Albumin Level 4.9 g/dL (3.5-5.1); Alkaline Phosphatase 64 U/L (38-126); Anion Gap 11 mmol/L (4-12); Aspartate Amino Transferase 32 U/L (14-36); Bilirubin,Total 0.5 mg/dL (0.2-1.3); Blood Urea Nitrogen 20 mg/dL (7-17); Calcium 9.7 mg/dL (8.4-10.2); Carbon Dioxide 28 mmol/L (22-30); Chloride 105 mmol/L (98-107); Estimated CRCL calculation 126 ml/min; Estimated Glomerular Filt Rate > 60; Glucose 109 mg/dL (65-110); Potassium 4.3 mmol/L (3.4-5.0); Sodium 144 mmol/L (137-145)
[2024-07-19 15:38] LABS: BEDSIDEPREGUCG Negative (Negative)
[2024-07-19 15:42] LABS: Add Urine Microscopic? YES; Appearance Urine Clear (Clear); Bacteria Urine None Seen /hpf; Bilirubin Urine Negative (Negative); Blood Urine Negative (Negative); Color Urine Yellow (Yellow); Glucose Urine UA Negative (Negative); Ketones Urine Trace mg/dL (Negative); Leukocyte Esterase Ur Negative LEU/UL (Negative); Need Manual Microscopic Reviewed; Nitrate Urine Negative (Negative); Protein Urine Trace mg/dL (Negative); RBC Urine 0-2 /hpf (0-2); Specific Grav Ur 1.019 (1.001-1.035); Squamous Epithelial Cell Urine None Seen /hpf (Few); WBC Urine 0-5 /hpf (0-3); pH Urine 5.5 (5.0-9.0)
[2024-07-19 15:47] LABS: Amphetamine Screen Urine Negative (Negative); Barbiturate Screen Urine Negative (Negative); Benzodiazepines Screen Urine Positive (Negative); Cannabinoid Screen Urine Negative (Negative); Cocaine Screen Urine Negative (Negative); Methadone Screen Urine Negative (Negative); Opiate Screen Urine Negative (Negative); Phencyclidine Screen Urine Negative (Negative)
--- NOTE | 2024-07-19 16:00 | PC.NURSE ---
Spoke with [place] poison controlKasey RN - states Benzo supportive care for resp depression, hypotension. Do not recommend Flumazenil. Toxic dose 15mg, peak time 1-2 hours
[2024-07-19 16:05] LABS: Thyroid Stimulating Hormone 0.557 uIU/mL (0.465-4.680)
[2024-07-19] MEDS: SODIUM CHLORIDE 0.9% IV 1,000 ML 999 ML IV CONT ×3 (16:18→21:50)
[2024-07-19 17:58] LABS: Procalcitonin < 0.0 ng/mL
[2024-07-19] MEDS: THIAMINE HCL 200 MG/2 ML VIAL 100 MG IV PUSH (18:03)
--- NOTE | 2024-07-19 18:23 | PC.NURSE ---
1804 Spoke with Kasey from [place] [facility] and gave update on pts condition, labs and vitals.
--- NOTE | 2024-07-19 18:46 | PC.NURSE ---
Spoke with Kennedi from phlebotomy about getting 2nd set of blood cultures on pt due to difficult stick.
[2024-07-19] MEDS: methylPREDNISolone SOD SUCC 40 MG VIAL IV PUSH (19:08)
[2024-07-19] MEDS: diphenhydrAMINE HCl INJ 50 MG/ML VIAL IV PUSH (19:08)
[2024-07-19] MEDS: NALOXONE HCL INJ 2 MG/2 ML AMP 1 MG IV PUSH (19:08)
--- NOTE | 2024-07-19 19:47 | PC.NURSE ---
This patient, Reyna Paige, was admitted to Intensive Care Unit-2. Patient/family oriented to hospital policies and general routines including ID bracelet, bed and alarms, visiting hours, pain management, procedures, bathroom and other care routines, personal items, smoking policy, room service/diet, and visiting hours. Information on how to activate the Rapid Response Team has been discussed. Patient/Family are encouraged to report perceived risks to care and to ask questions if they do not understand what they are told or what they should do.
[2024-07-19] MEDS: SODIUM CHLORIDE 0.9% IV 1,000 ML 125 ML IV CONT (20:30)
[2024-07-19 20:38] LABS: MRSA (PCR) NOT DETECTED (NOT DETECTE)
--- NOTE | 2024-07-19 21:10 | PM.IMHP ---
H&P: HPI History of Present Illness Date/Time: 07/19/24 21:10 Chief Complaint: Minimally responsive. Narrative: Is a 43-year-old female with history of hepatitis-B, ovarian cancer status post oophorectomy, bipolar disorder, posttraumatic stress disorder, depression, anxiety, gastroesophageal reflux disease, irritable bowel syndrome, and kidney stones who presented to the emergency department via EMS from home for evaluation after she was found to be minimally responsive. She is finally starting to wake up a bit at the time of this dictation however she can not really provide a history and the following history is obtained via review of her electronic medical records as well as information provided by her fiance and mother. She was in her usual state of health yesterday and she and her fiance went to a local red where she had 1 or 2 gin and tonics. They took wine home with them and the patient reportedly drink 2 bottles of sweet wine before going to bed. Apparently she did not seem intoxicated and melissa gave her her Xanax at about 21:45 as per usual. She does not take Xanax as prescribed (1 mg t.i.d.) and instead takes all three pills at night. Sometime around midnight she woke up after a nightmare in which someone was chasing her and trying to kill her. Melissa states that she was looking for Seroquel which she had had previously to help her go back asleep but there was none in the house. He does not think she took any other medication and she went back to bed after using the restroom. At 08:00 her son called to see if they were still going to [place] but patient was still asleep at that time. Melissa allowed her to sleep as he assumes that she was tired however this afternoon he was unable to wake her, even with noxious stimuli, and he called 911. There were are no reports of recent illness, falls, head trauma, seizure activity, drug abuse, or alcohol abuse. Melissa counted the Xanax remaining and 56 pills out of 90 remain in a bottle which was filled on 07/02/2024. There are was no evidence that she could of taken any extra medication. No vomiting or diarrhea. In the ED: She was in a sinus tachycardia on arrival with a rate of 113. The remainder of her vital signs were stable. CMP and CBC were really unremarkable with only outliers being a platelet of 137 and a BUN of 20. Urinalysis showed trace ketones. TSH was within normal limits. CRP and procalcitonin were normal. Drug screen was positive for benzodiazepines which she is prescribed. Alcohol level was undetectable as well as salicylate and acetaminophen levels. Head CT and CTA of the head and neck were within normal limits. Chest x-ray showed right basilar atelectasis versus pneumonia. Review of Systems Review of Systems: Unable to obtain given clinical condition. [facility] Past Medical History Medical History (Updated 07/19/24 @ 23:21 by Zuleima Malagon PA-C) Irritable bowel syndrome Medullary sponge kidney Posttraumatic stress disorder History of blood transfusion Tobacco use Hepatitis B Anemia Bipolar disorder Kidney stones Ovarian cancer Sleep apnea Asthma Depression Anxiety Surgical History Surgical History (Updated 07/19/24 @ 23:27 by Zuleima Malagon PA-C) History of section History of tubal ligation History of left salpingo-oophorectomy History of laparoscopic cholecystectomy (10/19/21) History of dilatation and curettage Social History Social History (Updated 07/19/24 @ 23:08 by Zuleima Malagon PA-C) Social History: Surrogate medical decision maker: Flaca Prater, mother or melissa Fan. Code status: Full code. 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 Spiritual care concerns: No Meds Home Medications and Allergies Home Medications ?Medication ?Instructions ?Recorded ?Confirmed ?Type alprazolam 1 mg tablet (Xanax) 1 mg PO TID 07/30/19 07/19/24 History albuterol sulfate 90 mcg/actuation 2 puff inhalation QID PRN 02/09/22 07/19/24 Rx aerosol inhaler shortness of breath or wheezing #6.7 grams cephalexin 250 mg capsule 250 mg PO DAILY 07/19/24 07/19/24 History Allergies Allergy/AdvReac Type Severity Reaction Status Date / Time oxycodone (From Percocet) Allergy Intermediate Hallucinati Verified 07/19/24 20:36 ng Iodinated Contrast Media Allergy Unknown Rash Verified 07/19/24 20:36 morphine AdvReac Mild Itching Verified 07/19/24 20:36 Vital Signs Vital Signs - 24 hr 07/19/24 14:57 07/19/24 15:36 07/19/24 16:46 Temperature 97.2 F L Pulse Rate 113 H 121 H Respiratory Rate 17 13 Blood Pressure 113/87 138/92 H Pulse Oximetry 97 98 100 Oxygen Delivery Room Air 07/19/24 18:02 07/19/24 18:16 07/19/24 18:18 Temperature 98.1 F Pulse Rate 104 H 105 H 101 H Respiratory Rate 16 28 H 15 Blood Pressure 114/91 H 109/88 109/88 Pulse Oximetry 100 99 100 Oxygen Delivery 07/19/24 18:31 07/19/24 19:57 07/19/24 20:00 Temperature 98.3 F Pulse Rate 103 H 112 H Respiratory Rate 16 13 Blood Pressure 122/92 H 131/94 H Pulse Oximetry 100 100 100 Oxygen Delivery Room Air Exam Narrative: General: Acutely ill-appearing female in the semi-Clay[place] position in bed. Weight: 83.7 kg. BMI: 28.9. HEENT: Normocephalic, atraumatic. Pupils are approximately 3 mm and are sluggishly reactive. Conjunctiva mildly injected. Sclera anicteric. Tacky mucous membranes. Neck: Supple. No nuchal rigidity, lymphadenopathy, or obvious thyromegaly. Respiratory: Respirations are nonlabored. Lung sounds are diminished due to poor effort but are otherwise clear to auscultation. She is protecting her airway and tolerating secretions. Cardiovascular: Tachycardic with normal S1-S2. Gastrointestinal: Abdomen is soft, nontender, and nondistended with positive bowel sounds. Delete Skin: Warm and dry. Extremities: No cyanosis, clubbing, or edema. Radial and pedal pulses intact. Neurological: Withdrew to noxious stimuli initially. She is now opening her eyes to name. Not really following commands yet. No facial asymmetry. Good tone. No clonus. Initial roving eyes without nystagmus. No tremors or seizure activity. Psychiatric: Unable to assess accurately at this time. H&P: Results Labs Labs: Short CBC 07/19/24 Range/Units 15:18 WBC 6.6 (4.5-10.0) K/mm3 Hgb 15.0 (12.0-15.0) g/dL Hct 44.6 (37.0-47.0) % Plt Count 137 L (150-375) k/mm3 BMP 07/19/24 15:18 Sodium 144 Potassium 4.3 Chloride 105 Carbon Dioxide 28 BUN 20 H Creatinine 0.62 L Glucose 109 Calcium 9.7 Liver Function 07/19/24 Range/Units 15:18 Total Bilirubin 0.5 (0.2-1.3) mg/dL AST 32 (14-36) U/L ALT 24 (6-35) U/L Alkaline Phosphatase 64 (38-126) U/L Albumin 4.9 (3.5-5.1) g/dL Urine 07/19/24 Range/Units 15:21 Urine Color Yellow (Yellow) Urine Appearance Clear (Clear) Urine pH 5.5 (5.0-9.0) Ur Specific [place] 1.019 (1.001-1.035) Urine Protein Trace (Negative) mg/dL Urine Glucose (UA) Negative (Negative) mg/dL Imaging Head CT 07/19/24 15:54 IMPRESSION: 1. No acute intracranial findings. Chest X-Ray 07/19/24 19:14 IMPRESSION: 1. Right basilar atelectasis versus pneumonia. Clinical correlation and follow-up advised Head/Neck CTA 07/19/24 20:57 IMPRESSION: 1. Normal CTA head and neck. Percent stenosis per NASCET criteria is 0%. Assessment and Plan Assessment and plan (1) Toxic encephalopathy: Code(s): G92.9 - Unspecified toxic encephalopathy Status: Acute (2) Anxiety: Code(s): F41.9 - Anxiety disorder, unspecified Status: Acute (3) Posttraumatic stress disorder: Code(s): F43.10 - Post-traumatic stress disorder, unspecified Status: Acute (4) Depression: Code(s): F32.9 - Major depressive disorder, single episode, unspecified Status: Acute (5) Bipolar disorder: Code(s): F31.9 - Bipolar disorder, unspecified Status: Acute Plan The patient presented to the emergency department for evaluation of minimal responsiveness since morning as detailed in HPI. Labs, imaging, EKG, and all reports were personally reviewed. Etiology is not entirely clear however I suspect she likely has toxic metabolic encephalopathy from heavy alcohol consumption last night in addition to Xanax 3 mg which she took prior to bedtime. I wonder if she may have taken in another dose of Xanax after she awoke following a nightmare at midnight but that is speculation. Urine drug screen is positive for benzodiazepines only which she is prescribed. There was no response to Narcan. Doubt encephalitis, meningitis, or other underlying infection. Chest x-ray was read as having atelectasis versus pneumonia on the right however this is likely atelectasis thus will hold on antibiotics for now. Brain CT was without significant findings and there are no obvious focal findings. I have not seen any evidence of seizure activity. TSH was within normal limits. Check ammonia and B12 levels for completeness sake. Consider EEG, LP, and/or brain MRI depending on how she does overnight. Due to concerns for possible Xanax overdose, Poison Control was contacted by the ED and we will follow their recommendations. Continue hydration overnight. Her home medications will be reviewed and resumed as appropriate. Findings and treatment plan were discussed with the patient's mother and fiance. Questions were solicited and answered to satisfaction. The patient's medical management will be taken over by the hospitalist team in a.m. Quality VTE Prophylaxis VTE prophylaxis: mechanical ordered If No VTE Prophylaxis Answer both mechanical and pharmacologic: Reason no pharmacologic proph: medical contraindication (may need procedure) The patient has been admitted under observation status. Hospitalist [facility] Advance Care Plan I have confirmed that the patient's Advanced Care Plan is present, code status is documented, or surrogate decision maker is listed in patient medical record.: Yes Medication Reconciliation I have utilized all available resources to obtain, update and review the patients current medications (includes all prescriptions, OTC, herbals, cannabis, and nutritional supplements).: Yes Critical Care Time Critical Care Time: Yes Total Critical Care Time: 75 Attestation: Due to a high probability of clinically significant, life threatening deterioration, the patient required my highest level of preparedness to intervene emergently and I personally spent this critical care time directly and personally managing the patient. This critical care time included obtaining a history; examining the patient; pulse oximetry; ordering and review of studies; arranging urgent treatment with development of a management plan; evaluation of patient's response to treatment; frequent reassessment; and discussions with other providers. It was exclusive of separately billable procedures and treating other patients and teaching time. Please see Assessment and Plan section and the rest of the note for further information on patient assessment and treatment.
[2024-07-19 22:32] LABS: Glucose Point of Care 105 mg/dl (65-105)
[2024-07-20] VITALS (7 sets, daily range): BP systolic 98–132; BP diastolic 78–90; PULSE 99–106; RESP 18–22; TEMP 36.7–37.1; O2SAT 94–98
[2024-07-20] MEDS: methylPREDNISolone SOD SUCC 40 MG VIAL IV PUSH ×2 (00:50→05:22)
[2024-07-20 01:04] LABS: Ammonia < 9 umol/L (9-30)
[2024-07-20 01:05] LABS: Alanine Aminotransferase 20 U/L (6-35); Albumin Level 4.2 g/dL (3.5-5.1); Alkaline Phosphatase 58 U/L (38-126); Anion Gap 10 mmol/L (4-12); Aspartate Amino Transferase 29 U/L (14-36); Bilirubin,Total 0.4 mg/dL (0.2-1.3); Blood Urea Nitrogen 16 mg/dL (7-17); Calcium 9.1 mg/dL (8.4-10.2); Carbon Dioxide 21 mmol/L (22-30); Chloride 111 mmol/L (98-107); Estimated CRCL calculation 152 ml/min; Estimated Glomerular Filt Rate > 60; Glucose 119 mg/dL (65-110); Sodium 142 mmol/L (137-145)
[2024-07-20 01:06] LABS: Lactic Acid Reflex 1.3 mmol/L (0.7-2.0)
[2024-07-20 04:07] LABS: Hematocrit 40.5 % (37.0-47.0); Hemoglobin 13.4 g/dL (12.0-15.0); Immature Granulocyte Absolute 0.02 K/mm3 (0.00-0.031); Immature Granulocyte Percent A 0.2 % (0-0.5); Immature Platelet Fraction Pct 6.1 % (0.9-11.2); Lymphocytes Absolute Auto 0.59 K/mm3 (0.9-3.2); Lymphocytes Percent Auto 6.7 % (18.3-44.2); Mean Corpuscular HGB Conc 33.1 g/dl (32-36); Mean Corpuscular Hemoglobin 30.7 pg (26-34); Mean Corpuscular Volume 92.9 fl (80-100); Mean Platelet Volume 11.4 fl (7.4-10.4); Monocytes Absolute Auto 0.1 K/mm3 (0.1-0.6); Monocytes Percent Auto 1.5 % (2.6-8.5); Neutrophils Percent Auto 91.6 % (45.5-73.1); Platelet Count Result 120 k/mm3 (150-375); Red Blood Count 4.36 M/mm3 (4.2-5.4); Red Cell Distribution Width 12.9 % (11.5-14.5); White Blood Count 8.8 K/mm3 (4.5-10.0)
[2024-07-20 04:17] LABS: Alanine Aminotransferase 19 U/L (6-35); Alkaline Phosphatase 58 U/L (38-126); Anion Gap 9 mmol/L (4-12); Aspartate Amino Transferase 27 U/L (14-36); Bilirubin,Total 0.4 mg/dL (0.2-1.3); Blood Urea Nitrogen 15 mg/dL (7-17); Calcium 9.1 mg/dL (8.4-10.2); Carbon Dioxide 19 mmol/L (22-30); Chloride 113 mmol/L (98-107); Estimated CRCL calculation 173 ml/min; Estimated Glomerular Filt Rate > 60; Glucose 135 mg/dL (65-110); Magnesium 1.9 mg/dL (1.6-2.3); Potassium 3.8 mmol/L (3.4-5.0); Sodium 141 mmol/L (137-145)
[2024-07-20] MEDS: SODIUM CHLORIDE 0.9% IV 1,000 ML 125 ML IV CONT (05:31)
--- NOTE | 2024-07-20 07:59 | P.CONIN_ITS ---
Assessment and Plan Assessment and plan (1) Toxic metabolic encephalopathy: Code(s): G92.8 - Other toxic encephalopathy Status: Acute Assessment and Plan: 07/19: Patient presented with altered mental status not responding to sternal rub by her fiance at home who called 911 and was brought here to the [place] ER for encephalopathy -urine drug screen was positive for benzodiazepine which she takes at home as a prescribed medication -ETOH, salicylate and acetaminophen levels were undetectable -CT and CTA head and neck were within normal limits, chest x-ray showed right basilar atelectasis versus pneumonia. -Narcan was given in the ER with no response -patient did drink 2 bottles of sweet wine, took Xanax 3 mg at night before going to bed, patient also recently received his semaglutide -this morning patient is waking up, follows simple commands briskly, able to move all her extremities spontaneously, is unable to speak. -likely cause could be interaction with wine, Xanax and recent received semaglutide. -no seizure-like activities -continue IV fluids -patient received Benadryl and methylprednisolone overnight for CTA brain -will DC methylprednisolone -continue maintenance IV fluids (2) Anxiety: Code(s): F41.9 - Anxiety disorder, unspecified Status: Acute Assessment and Plan: Hold all benzodiazepines for now (3) Posttraumatic stress disorder: Code(s): F43.10 - Post-traumatic stress disorder, unspecified Status: Acute Assessment and Plan: Chronic (4) Depression: Code(s): F32.9 - Major depressive disorder, single episode, unspecified Status: Acute Assessment and Plan: Chronic not on any antidepressants Plan DVT prophylaxis: Lovenox Stress ulcer prophylaxis: Protonix Nutrition: NPO Code Status: Full code Critical Care Time Spent: 49 minutes Discussed with meek at bedside and updated with patient's condition and plan of care. Due to a high probability of clinically significant, life threatening deterioration, the patient required my highest level of preparedness to intervene emergently and I personally spent this critical care time directly and personally managing the patient. This critical care time included obtaining a history; examining the patient; pulse oximetry; ordering and review of studies; arranging urgent treatment with development of a management plan; evaluation of patient's response to treatment; frequent reassessment; and discussions with other providers. It was exclusive of separately billable procedures and treating other patients and teaching time. Please see Assessment and Plan section and the rest of the note for further information on patient assessment and treatment This dictation may have been done utilizing a voice recognition system. Attempts have been made to correct errors. However, there may be uncorrected grammatical, spelling, and recognitions errors present. [employer] Project Manager Consult Note Consult date: 07/20/24 Reason for consult: Altered mental status HPI: Reyna Paige is a 43 year old female history of hepatitis-B, ovarian cancer status post oophorectomy, bipolar disorder, posttraumatic stress disorder, depression, anxiety, GERD, irritable bowel syndrome, kidney stones, gallstones status post laparoscopic cholecystectomy presented the ED on 07/19/2024 with altered mental status. History obtained from medical records antrum was in bedside. Stated that she was in normal state of health a day prior to admission. The head count to a local winery and she had 2 bottles of sweet wine before going to bed, she also took her Xanax 3 mg which she takes daily at night. During the night patient did wake up with a nightmare, the failed said help her go back to sleep. denies she needed the patient took any other medications before going to bed. He denies that she takes any illicit drugs. With offensive woke up in the morning he alert the patient to sleep child EF known and when he was unable to wake her even after a sternal rub he called 911. He did not mention any seizure-like activities, falls, recent illness. Tonicirilo counted the Xanax remaining and 56 pills out of 90 remain in a bottle which was filled on 07/02/2024. There are was no evidence that she could of taken any extra medication. In the ER patient was found to be in sinus tachycardia, with rates in the 110s. Afebrile, vital signs were stable, CMP and CBC was unremarkable. Urine showed trace ketones, TSH was within normal limits, CRP and procalcitonin were normal. Drug screen was positive for benzodiazepine which is her prescribed medication. ETOH, acetaminophen, salicylates acids were undetectable. CT and CTA head and neck were within normal limits, chest x-ray showed right basilar atelectasis versus pneumonia. Patient seen and examined the ICU this morning, received a total of 3 L of IV fluids bolus since admission, and remains on IV fluids. Patient is more awake, follows simple commands, is not able to talk, looks confused. Patient has been hemodynamically stable, afebrile, low urine output. Review of Systems 2 Review of Systems: ROS unobtainable: Yes unobtainable due to mental status [facility] Past Medical History Medical History (Updated 07/19/24 @ 23:21 by Zuleima Malagon PA-C) Irritable bowel syndrome Medullary sponge kidney Posttraumatic stress disorder History of blood transfusion Tobacco use Hepatitis B Anemia Bipolar disorder Kidney stones Ovarian cancer Sleep apnea Asthma Depression Anxiety Surgical History Surgical History (Updated 07/19/24 @ 23:27 by Zuleima Malagon PA-C) History of section History of tubal ligation History of left salpingo-oophorectomy History of laparoscopic cholecystectomy (10/19/21) History of dilatation and curettage Social History Social History (Updated 07/19/24 @ 23:08 by Zuleima Malagon PA-C) Social History: Surrogate medical decision maker: Flaca Prater, mother or giovanny Fan. Code status: Full code. 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 Spiritual care concerns: No Meds Home Medications and Allergies Home Medications ?Medication ?Instructions ?Recorded ?Confirmed ?Type alprazolam 1 mg tablet (Xanax) 1 mg PO TID 07/30/19 07/19/24 History albuterol sulfate 90 mcg/actuation 2 puff inhalation QID PRN 02/09/22 07/19/24 Rx aerosol inhaler shortness of breath or wheezing #6.7 grams cephalexin 250 mg capsule 250 mg PO DAILY 07/19/24 07/19/24 History semaglutide (weight loss) 0.25 0.25 mg subcut WEEKLY 07/20/24 07/20/24 History mg/0.5 mL subcutaneous pen injector (Wegovy) Allergies Allergy/AdvReac Type Severity Reaction Status Date / Time oxycodone (From Percocet) Allergy Intermediate Hallucinati Verified 07/19/24 20:36 ng Iodinated Contrast Media Allergy Unknown Rash Verified 07/19/24 20:36 morphine AdvReac Mild Itching Verified 07/19/24 20:36 Vital Signs Vital Signs - 24 hr 07/19/24 14:57 07/19/24 15:36 07/19/24 16:46 Temperature 97.2 F L Pulse Rate 113 H 121 H Respiratory Rate 17 13 Blood Pressure 113/87 138/92 H Pulse Oximetry 97 98 100 Oxygen Delivery Room Air 07/19/24 18:02 07/19/24 18:16 07/19/24 18:18 Temperature 98.1 F Pulse Rate 104 H 105 H 101 H Respiratory Rate 16 28 H 15 Blood Pressure 114/91 H 109/88 109/88 Pulse Oximetry 100 99 100 Oxygen Delivery 07/19/24 18:31 07/19/24 19:57 07/19/24 20:00 Temperature 98.3 F Pulse Rate 103 H 112 H Respiratory Rate 16 13 Blood Pressure 122/92 H 131/94 H Pulse Oximetry 100 100 100 Oxygen Delivery Room Air 07/19/24 20:00 07/19/24 20:00 07/19/24 22:00 Temperature Pulse Rate 110 H 100 Respiratory Rate Blood Pressure Pulse Oximetry 100 Oxygen Delivery Room Air 07/19/24 22:00 07/20/24 00:00 07/20/24 00:00 Temperature 98.8 F Pulse Rate 100 101 H Respiratory Rate 17 19 Blood Pressure 126/85 127/89 Pulse Oximetry 96 97 97 Oxygen Delivery Room Air 07/20/24 00:00 07/20/24 02:00 07/20/24 02:00 Temperature Pulse Rate 102 H 101 H 101 H Respiratory Rate 18 Blood Pressure 125/88 Pulse Oximetry 94 Oxygen Delivery 07/20/24 04:00 07/20/24 04:00 07/20/24 04:00 Temperature 98.7 F Pulse Rate 101 H 100 Respiratory Rate 20 Blood Pressure 132/90 Pulse Oximetry 94 94 Oxygen Delivery Room Air 07/20/24 06:00 07/20/24 06:00 Temperature Pulse Rate 105 H 105 H Respiratory Rate 22 H Blood Pressure 115/78 Pulse Oximetry 97 Oxygen Delivery Exam 2 Narrative: General: Patient is awake, unable to talk, in no acute distress HEENT:? Pupils equal and reactive, sclera is clear, moist oral mucosa Neck:? Supple Respiratory:? Clear to auscultation bilaterally, no wheezing, adequate air entry Cardiac:? Sinus tachycardia, S1-S2 is normal Abdomen:? Soft, nontender, nondistended, hypoactive bowel sounds Extremities:? No edema, palpable pedal pulses Neuro:? Patient is awake, seems to be alert, follows simple commands briskly, unable to talk or answer questions, patient tries to mouth words. No neck stiffness, no pain on leg raises, no stiffness/rigidity in joints of upper or lower extremities bilaterally Skin:? Warm and dry Psych:? Unable to assess at this time Results Labs 07/20/24 03:51 07/20/24 03:51 Labs: Short CBC 07/19/24 07/20/24 Range/Units 15:18 03:51 WBC 6.6 8.8 (4.5-10.0) K/mm3 Hgb 15.0 13.4 (12.0-15.0) g/dL Hct 44.6 40.5 (37.0-47.0) % Plt Count 137 L 120 L (150-375) k/mm3 BMP 07/19/24 07/20/24 07/20/24 15:18 00:28 03:51 Sodium 144 142 141 Potassium 4.3 4.0 3.8 Chloride 105 111 H 113 H Carbon Dioxide 28 21 L 19 L BUN 20 H 16 15 Creatinine 0.62 L 0.44 L 0.38 L Glucose 109 119 H 135 H Calcium 9.7 9.1 9.1 Liver Function 07/19/24 07/20/24 07/20/24 Range/Units 15:18 00:28 03:51 Total Bilirubin 0.5 0.4 0.4 (0.2-1.3) mg/dL AST 32 29 27 (14-36) U/L ALT 24 20 19 (6-35) U/L Alkaline Phosphatase 64 58 58 (38-126) U/L Albumin 4.9 4.2 4.0 (3.5-5.1) g/dL Urine 07/19/24 Range/Units 15:21 Urine Color Yellow (Yellow) Urine Appearance Clear (Clear) Urine pH 5.5 (5.0-9.0) Ur Specific [place] 1.019 (1.001-1.035) Urine Protein Trace (Negative) mg/dL Urine Glucose (UA) Negative (Negative) mg/dL Quality VTE Prophylaxis VTE prophylaxis: mechanical ordered Hospitalist MIPS Advance Care Plan I have confirmed that the patient's Advanced Care Plan is present, code status is documented, or surrogate decision maker is listed in patient medical record.: Yes Medication Reconciliation I have utilized all available resources to obtain, update and review the patients current medications (includes all prescriptions, OTC, herbals, cannabis, and nutritional supplements).: Yes
[2024-07-20] MEDS: LACTATED RINGERS 1,000 ML 125 ML IV CONT (08:00)
[2024-07-20] MEDS: PANTOPRAZOLE SODIUM IV 40 MG VIAL IV PUSH (10:13)
--- NOTE | 2024-07-20 12:03 | PC.NURSE ---
Alta with [facility] called and spoke with at 1201. Report given. Awaiting EMS transfer at this time.
--- NOTE | 2024-07-20 13:35 | PM.TDS ---
Transfer Discharge Sum: Prov Provider Date of admission: 07/19/24 18:46 Primary care physician: Augusto Taylor MD Admitting clinician: Augusto Taylor MD Consults: 07/19/24 Consult to Physician Routine Comment: Consulting Provider: Fady Castle Reason for consultation: AMS Has provider been notified: Yes Attending physician on discharge: Fady Castle Discharging clinician: Fady Castle Anticipated date of transfer: 07/20/24 Receiving physician/facility: [facility] DS: Admitting Diagnosis Discharge Date 07/20/24 Admitting Diagnosis Altered mental status after taking 3 mg of Xanax and drinking 2 bottles of sweet wine night prior to to admission DS: Discharge Diagnosis Discharge Diagnosis (1) Toxic metabolic encephalopathy: Code(s): G92.8 - Other toxic encephalopathy Status: Acute Assessment and Plan: 07/19: Patient presented with altered mental status not responding to sternal rub by her fiance at home who called 911 and was brought here to the [place] ER for encephalopathy -urine drug screen was positive for benzodiazepine which she takes at home as a prescribed medication -ETOH, salicylate and acetaminophen levels were undetectable -CT and CTA head and neck were within normal limits, chest x-ray showed right basilar atelectasis versus pneumonia. -Narcan was given in the ER with no response -patient did drink 2 bottles of sweet wine, took Xanax 3 mg at night before going to bed, patient also recently received his semaglutide -this morning patient is waking up, follows simple commands briskly, able to move all her extremities spontaneously, is unable to speak. -likely cause could be interaction with wine, Xanax and recent received semaglutide. -no seizure-like activities -continue IV fluids -patient received Benadryl and methylprednisolone overnight for CTA brain -will DC methylprednisolone -continue maintenance IV fluids -since our hospital did not have neurology coverage or MRI services I discussed with family regarding transfer patient to higher level of care to obtain MRI and neurologist to follow the patient. Patient's fiancee and her mother were agreeable for transfer. -patient was accepted to [facility] and was transferred on 07/20/2024 in stable condition (2) Anxiety: Code(s): F41.9 - Anxiety disorder, unspecified Status: Acute Assessment and Plan: Hold all benzodiazepines for now (3) Posttraumatic stress disorder: Code(s): F43.10 - Post-traumatic stress disorder, unspecified Status: Acute Assessment and Plan: Chronic (4) Depression: Code(s): F32.9 - Major depressive disorder, single episode, unspecified Status: Acute Assessment and Plan: Chronic not on any antidepressants Plan DVT prophylaxis: Lovenox Stress ulcer prophylaxis: Protonix Nutrition: NPO Code Status: Full code Discussed with fiancee and mother at bedside and updated with patient's condition and plan of care. Due to a high probability of clinically significant, life threatening deterioration, the patient required my highest level of preparedness to intervene emergently and I personally spent this critical care time directly and personally managing the patient. This critical care time included obtaining a history; examining the patient; pulse oximetry; ordering and review of studies; arranging urgent treatment with development of a management plan; evaluation of patient's response to treatment; frequent reassessment; and discussions with other providers. It was exclusive of separately billable procedures and treating other patients and teaching time. Please see Assessment and Plan section and the rest of the note for further information on patient assessment and treatment This dictation may have been done utilizing a voice recognition system. Attempts have been made to correct errors. However, there may be uncorrected grammatical, spelling, and recognitions errors present. Transfer Discharge Sum: Med Medications Active and Home Medications: Home Medications alprazolam 1 mg tablet (Xanax) 1 mg PO TID 07/30/19 [History Confirmed 07/19/24] albuterol sulfate 90 mcg/actuation aerosol inhaler 2 puff inhalation QID PRN shortness of breath or wheezing #6.7 grams 02/09/22 [Rx Confirmed 07/19/24] cephalexin 250 mg capsule 250 mg PO DAILY 07/19/24 [History Confirmed 07/19/24] semaglutide (weight loss) 0.25 mg/0.5 mL subcutaneous pen injector (Wegovy) 0.25 mg subcut WEEKLY 07/20/24 [History Confirmed 07/20/24] Transfer Discharge Sum: Hosp Hospital Course Hospital course: Reyna Paige is a 43 year old female history of hepatitis-B, ovarian cancer status post oophorectomy, bipolar disorder, posttraumatic stress disorder, depression, anxiety, GERD, irritable bowel syndrome, kidney stones, gallstones status post laparoscopic cholecystectomy presented the ED on 07/19/2024 with altered mental status. History obtained from medical records antrum was in bedside. Stated that she was in normal state of health a day prior to admission. The head count to a local winery and she had 2 bottles of sweet wine before going to bed, she also took her Xanax 3 mg which she takes daily at night. During the night patient did wake up with a nightmare, the failed said help her go back to sleep. denies she needed the patient took any other medications before going to bed. He denies that she takes any illicit drugs. With offensive woke up in the morning he alert the patient to sleep child EF known and when he was unable to wake her even after a sternal rub he called 911. He did not mention any seizure-like activities, falls, recent illness. Melissa counted the Xanax remaining and 56 pills out of 90 remain in a bottle which was filled on 07/02/2024. There are was no evidence that she could of taken any extra medication. In the ER patient was found to be in sinus tachycardia, with rates in the 110s. Afebrile, vital signs were stable, CMP and CBC was unremarkable. Urine showed trace ketones, TSH was within normal limits, CRP and procalcitonin were normal. Drug screen was positive for benzodiazepine which is her prescribed medication. ETOH, acetaminophen, salicylates acids were undetectable. CT and CTA head and neck were within normal limits, chest x-ray showed right basilar atelectasis versus pneumonia. 07/20/2024: Patient seen and examined the ICU this morning, received a total of 3 L of IV fluids bolus since admission, and remains on IV fluids. Patient is more awake, follows simple commands, is not able to talk, looks confused. Patient has been hemodynamically stable, afebrile, low urine output. Since our hospital did not have MRI services that day or neurologist coverage, discussed with patient's meek and her mother regarding transfer to higher level of care to obtain MRI to evaluate for her altered mental status and him being nonverbal, and also neurologist to follow the patient. Both of them were agreeable for transfer, and patient was transferred to [facility] Time Spent with Patient Time attestation: Total time spent providing and/or coordinating transfer services: 33 minutes Exam Narrative: General: Patient is awake, unable to talk, in no acute distress HEENT:? Pupils equal and reactive, sclera is clear, moist oral mucosa Neck:? Supple Respiratory:? Clear to auscultation bilaterally, no wheezing, adequate air entry Cardiac:? Sinus tachycardia, S1-S2 is normal Abdomen:? Soft, nontender, nondistended, hypoactive bowel sounds Extremities:? No edema, palpable pedal pulses Neuro:? Patient is awake, seems to be alert, follows simple commands briskly, unable to talk or answer questions, patient tries to mouth words. No neck stiffness, no pain on leg raises, no stiffness/rigidity in joints of upper or lower extremities bilaterally Skin:? Warm and dry Psych:? Unable to assess at this time DS: Data Data Completed and Pending Labs on day of discharge: Labs from last 24 hours 07/20/24 07/20/24 07/19/24 03:51 00:28 22:26 WBC 8.8 RBC 4.36 Hgb 13.4 Hct 40.5 MCV 92.9 MCH 30.7 MCHC 33.1 RDW 12.9 Plt Count 120 L MPV 11.4 H Immature Gran % (Auto) 0.2 Neut % (Auto) 91.6 H Lymph % (Auto) 6.7 L [place] % (Auto) 1.5 L Eos % (Auto) 0.0 Baso % (Auto) 0.0 L Lymph # (Auto) 0.59 L [place] # (Auto) 0.1 Eos # (Auto) 0.0 Baso # (Auto) 0.0 Abs Immat Gran (auto) 0.02 Absolute Neuts (auto) 8.0 H Absolute Nucleated RBC 0.000 Nucleated RBC % 0.0 % Immature Plt Fraction 6.1 Sodium 141 142 Potassium 3.8 4.0 Chloride 113 H 111 H Carbon Dioxide 19 L 21 L Anion Gap 9 10 BUN 15 16 Creatinine 0.38 L 0.44 L Estim Creat Clear Calc 173 152 Estimated GFR > 60 > 60 Glucose 135 H 119 H POC Capillary Glucose 105 Lactic Acid 1.3 Calcium 9.1 9.1 Magnesium 1.9 Total Bilirubin 0.4 0.4 AST 27 29 ALT 19 20 Alkaline Phosphatase 58 58 Ammonia < 9 L Total Protein 7.0 7.0 Albumin 4.0 4.2 Vitamin B1 Pending Vitamin B12 841.0 Procalcitonin TSH Urine Color Urine Appearance Urine pH Ur Specific [place] Urine Protein Urine Glucose (UA) Urine Ketones Ur Blood (Man) Urine Nitrate Urine Bilirubin Urine Urobilinogen Add Ur Microanalysis Leukocyte Esterase Rfl Urine RBC Urine WBC Ur Squamous Epith Cells Urine Bacteria Urine Casts POC Urine HCG, Qual Nasal MRSA (PCR) Salicylates Urine Opiates Screen Urine Methadone Screen Acetaminophen Ur Barbiturates Screen Ur Phencyclidine Scrn Ur Amphetamine Screen U Benzodiazepines Scrn Urine Cocaine Screen U Cannabinoids Screen Ethyl Alcohol 07/19/24 07/19/24 07/19/24 19:21 15:36 15:21 WBC RBC Hgb Hct MCV MCH MCHC RDW Plt Count MPV Immature Gran % (Auto) Neut % (Auto) Lymph % (Auto) [place] % (Auto) Eos % (Auto) Baso % (Auto) Lymph # (Auto) [place] # (Auto) Eos # (Auto) Baso # (Auto) Abs Immat Gran (auto) Absolute Neuts (auto) Absolute Nucleated RBC Nucleated RBC % % Immature Plt Fraction Sodium Potassium Chloride Carbon Dioxide Anion Gap BUN Creatinine Estim Creat Clear Calc Estimated GFR Glucose POC Capillary Glucose Lactic Acid Calcium Magnesium Total Bilirubin AST ALT Alkaline Phosphatase Ammonia Total Protein Albumin Vitamin B1 Vitamin B12 Procalcitonin TSH Urine Color Yellow Urine Appearance Clear Urine pH 5.5 Ur Specific [place] 1.019 Urine Protein Trace Urine Glucose (UA) Negative Urine Ketones Trace H Ur Blood (Man) Negative Urine Nitrate Negative Urine Bilirubin Negative Urine Urobilinogen 1.0 Add Ur Microanalysis Reviewed Leukocyte Esterase Rfl Negative Urine RBC 0-2 Urine WBC 0-5 Ur Squamous Epith Cells None seen Urine Bacteria None seen Urine Casts 3-5 POC Urine HCG, Qual Negative Nasal MRSA (PCR) Not detected Salicylates Urine Opiates Screen Negative Urine Methadone Screen Negative Acetaminophen Ur Barbiturates Screen Negative Ur Phencyclidine Scrn Negative Ur Amphetamine Screen Negative U Benzodiazepines Scrn Positive A Urine Cocaine Screen Negative U Cannabinoids Screen Negative Ethyl Alcohol 07/19/24 15:18 WBC 6.6 RBC 4.87 Hgb 15.0 Hct 44.6 MCV 91.6 MCH 30.8 MCHC 33.6 RDW 12.6 Plt Count 137 L MPV 11.5 H Immature Gran % (Auto) 0.5 Neut % (Auto) 79.2 H Lymph % (Auto) 14.5 L [place] % (Auto) 5.4 Eos % (Auto) 0.2 Baso % (Auto) 0.2 Lymph # (Auto) 0.96 [place] # (Auto) 0.4 Eos # (Auto) 0.0 Baso # (Auto) 0.0 Abs Immat Gran (auto) 0.03 Absolute Neuts (auto) 5.3 Absolute Nucleated RBC 0.000 Nucleated RBC % 0.0 % Immature Plt Fraction 6.6 Sodium 144 Potassium 4.3 Chloride 105 Carbon Dioxide 28 Anion Gap 11 BUN 20 H Creatinine 0.62 L Estim Creat Clear Calc 126 Estimated GFR > 60 Glucose 109 POC Capillary Glucose Lactic Acid Calcium 9.7 Magnesium Total Bilirubin 0.5 AST 32 ALT 24 Alkaline Phosphatase 64 Ammonia Total Protein 8.0 Albumin 4.9 Vitamin B1 Vitamin B12 Procalcitonin < 0.0 TSH 0.557 Urine Color Urine Appearance Urine pH Ur Specific [place] Urine Protein Urine Glucose (UA) Urine Ketones Ur Blood (Man) Urine Nitrate Urine Bilirubin Urine Urobilinogen Add Ur Microanalysis Leukocyte Esterase Rfl Urine RBC Urine WBC Ur Squamous Epith Cells Urine Bacteria Urine Casts POC Urine HCG, Qual Nasal MRSA (PCR) Salicylates < 1.0 L Urine Opiates Screen Urine Methadone Screen Acetaminophen < 10 L Ur Barbiturates Screen Ur Phencyclidine Scrn Ur Amphetamine Screen U Benzodiazepines Scrn Urine Cocaine Screen U Cannabinoids Screen Ethyl Alcohol < 10
[2024-07-24 09:52] LABS: Vitamin B1 322 nmol/L (8-30)
== END 2024-07-20 12:52 | disposition short-term general hospital (02) ==
LOC: ANHED 18:50 → ANHICU 21:17
PROVIDERS: Physician Assistant; Admitting Provider Internal Medicine; Emergency Provider Emergency Medicine; PCP Internal Medicine; Visit Provider Internal Medicine
DX: G92.8 Other toxic encephalopathy (principal); T42.4X5A Adverse effect of benzodiazepines, initial encounter; F10.90 Alcohol use, unspecified, uncomplicated; F41.9 Anxiety disorder, unspecified; F43.10 Post-traumatic stress disorder, unspecified; F31.9 Bipolar disorder, unspecified; B19.10 Unspecified viral hepatitis B without hepatic coma; J45.909 Unspecified asthma, uncomplicated; K21.9 Gastro-esophageal reflux disease without esophagitis; K58.9 Irritable bowel syndrome, unspecified; Q61.5 Medullary cystic kidney; Z79.2 Long term (current) use of antibiotics; Z79.51 Long term (current) use of inhaled steroids; Z79.85 Long-term (current) use of injectable non-insulin antidiabetic drugs; Z79.899 Other long term (current) drug therapy; Z85.43 Personal history of malignant neoplasm of ovary; Z87.891 Personal history of nicotine dependence; Z87.442 Personal history of urinary calculi; Z90.49 Acquired absence of other specified parts of digestive tract; Z90.79 Acquired absence of other genital organ(s)
CPT/HCPCS: 36415; 70450; 70496; 70498; 71045; 80053; 80143; 80179; 80307; 81001; 81025; 82077; 82140; 82607; 82948; 83605; 83735; 84145; 84425; 84443; 85025; 85055; 87040; 87641; 93005; 96361; 96374; 96375; 96376; 99285; G0378; G0379; J1200; J2310; J2470; J2919; J3411; J7030; J7120; Q9967